=== PATIENT | male | born 1965 | race Caucasian/White ===

== ENCOUNTER 2021-08-02 14:07 | Inpatient (IN) | payer BC ==
[~2021-08-02] VITALS: Ht 175.3 cm; Wt 123.6 kg
[~2021-08-02 14:07] MED LIST: ALBU90OI61 INH; ALLEGRA ALLERGY60 MG PO; Advil200 M1 PO; CARV25; CEPH500 PO; Calcium Carbon500 MG PO; FLUO10; FUROSEMIDE40 MG PO; HYDACE5 PO; INSLIS75I; KLOR-CON 1010 ME5 PO; LORA1; LOSA25 PO; Levaquin500 MG PO; NEBI5 PO; PIOGLITAZONE HC15 MG PO; PROZAC20 M7 PO; Pepto-Bismol262 MG PO; ROLAIDS; SERT100 PO; SERT50 PO; URSODIOL PO; Ventolin/Prove6.7 GM INH
[2021-08-02 14:35] LABS: Hematocrit 31.4 % (37.0-53.0); Hemoglobin 11.3 g/dL (13.5-17.5); Mean Corpuscular Volume 103 fL (80-100); Mean Platelet Volume 10.6 fL (9.1-12.4); Platelet Count 77 K/mm3 (150-400); RDW Coefficient Variation 16.1 % (11.7-14.2); Red Blood Cell Count 3.05 M/mm3 (4.30-5.90); White Blood Cell Count 5.45 K/mm3 (4.00-11.30)
[2021-08-02 14:54] LABS: Albumin, Blood 1.8 g/dL (3.4-5.0); Albumin/Globulin Ratio 0.4 (0.8-1.8); Bilirubin, Total 5.2 mg/dL (0.1-1.0); Bun/Creatinine Ratio 20.3 (12.0-20.0); Calcium, Blood 8.9 mg/dL (8.5-10.1); Creatinine, Blood 1.53 mg/dL (0.60-1.20); Globulin, Blood 5.1 g/dL (2.2-4.0); Potassium, Blood 4.5 mmol/L (3.5-5.5); Total Protein, Blood 6.9 g/dL (6.4-8.2)
[2021-08-02 15:10] LABS: BAND PERCENT MAN 17 % (0-8); BASOPHILS PERCENT MAN 2 % (0-2); EOSINOPHILS PERCENT MAN 2 % (0-6); LYMPHOCYTES ABSOLUTE MAN 0.59 K/mm3 (0.84-5.20); LYMPHOCYTES PERCENT MAN 11 % (21-46); METAMYELOCYTE ABSOLUTE MAN 0.05 K/mm3 (0.00-0.00); METAMYELOCYTE PERCENT MAN 1 % (0-0); MONOCYTES ABSOLUTE MAN 0.16 K/mm3 (0.16-1.47); MONOCYTES PERCENT MAN 3 % (4-13); NEUTROPHILS ABSOLUTE MAN 4.41 K/mm3 (1.96-9.15); SEG NEUTROPHILS PERCENT MAN 64 % (41-73); TOTAL CELLS COUNTED 100
[2021-08-02 16:20] LABS: International Normalized Ratio 1.66; Prothrombin Time Results 16.9 Sec (9.7-11.5)
[2021-08-02 19:54] LABS: Source, Urine Clean Catch
[2021-08-02 19:58] LABS: Appearance, Urine Hazy (Clear); Blood, Urine 2+ (Neg); Color, Urine Amber (P-Yellow); Glucose Qualitative, Urine Neg (Neg); Ketones, Urine Neg (Neg); Leukocyte Esterase, Urine 1+ (Neg); Nitrite, Urine Neg (Neg); Protein, Urine 1+ (Neg); Specific Gravity, Urine 1.015 (1.003-1.022); Urobilinogen, Urine 3+ (Normal)
[2021-08-02 20:06] LABS: Bilirubin, Urine 1+ (Neg)
[2021-08-02 20:11] LABS: Bacteria Few /hpf; Squamous Epithelial Cells Few /hpf (Few)
[2021-08-02 20:12] LABS: Amorphous Heavy (0-Heavy); Calcium Oxalate Crystals Few /hpf
[2021-08-02] MEDS ORDERED: NEBI5 PO (20:29)
[2021-08-03 00:12] LABS: Influenza A, PCR NEGATIVE (NEGATIVE); Influenza B, PCR NEGATIVE (NEGATIVE); Resp Syncytial Virus, PCR NEGATIVE (NEGATIVE); SARS-Cov-2 (COVID-19) PCR, MMC NEGATIVE (NEGATIVE)
[2021-08-03 04:47] LABS: Hematocrit 30.8 % (37.0-53.0); Hemoglobin 10.6 g/dL (13.5-17.5); Mean Corpuscular HGB 36.8 pg (26.0-34.0); Mean Corpuscular HGB Conc 34.4 g/dL (31.5-36.5); Mean Corpuscular Volume 107 fL (80-100); Mean Platelet Volume 10.2 fL (9.1-12.4); Platelet Count 55 K/mm3 (150-400); RDW Coefficient Variation 16.6 % (11.7-14.2); RDW Standard Deviation 64.8 fL (35.1-46.3); Red Blood Cell Count 2.88 M/mm3 (4.30-5.90); White Blood Cell Count 7.87 K/mm3 (4.00-11.30)
[2021-08-03 04:59] LABS: International Normalized Ratio 1.73; Prothrombin Time Results 17.5 Sec (9.7-11.5)
--- NOTE | 2021-08-03 05:05 | NUR ---
SHIFT SUMMARY PT RECEIVED FROM ER LAST NIGHT.PT WAS ADMITTED FOR DECOMPENSATED HEPATHIC CIRRHOSIS. PT WAS COMPLAINING OF NVD. PT IS AAOX4, VERY PLEASANT AND COOPERATIVE WITH CARE.PT ON 2L NC. PT CURRENTLY NPO WAITING FOR PARACENTESIS TO BE DONE TODAY. PT SLEPT THROUGN THE NIGHT, NO COMPLAINTS OF PAIN AND SOB.VSS REVIEWED. PT IS RESTING COMFORTABLY AT THIS TIME. BED IN LOWER POSITION AND CALL LIGHT IN REACH. WILL CONTINUE TO MONITOR.
[2021-08-03 05:10] LABS: BAND PERCENT MAN 18 % (0-8); BASOPHILS PERCENT MAN 0 % (0-2); EOSINOPHILS PERCENT MAN 0 % (0-6); LYMPHOCYTES ABSOLUTE MAN 0.23 K/mm3 (0.84-5.20); LYMPHOCYTES PERCENT MAN 3 % (21-46); MONOCYTES ABSOLUTE MAN 0.23 K/mm3 (0.16-1.47); MONOCYTES PERCENT MAN 3 % (4-13); NEUTROPHILS ABSOLUTE MAN 7.39 K/mm3 (1.96-9.15); SEG NEUTROPHILS PERCENT MAN 76 % (41-73); TOTAL CELLS COUNTED 100
[2021-08-03 05:35] LABS: Albumin, Blood 1.6 g/dL (3.4-5.0); Albumin/Globulin Ratio 0.3 (0.8-1.8); Bilirubin, Total 5.6 mg/dL (0.1-1.0); Bun/Creatinine Ratio 17.9 (12.0-20.0); Calcium, Blood 8.5 mg/dL (8.5-10.1); Creatinine, Blood 2.18 mg/dL (0.60-1.20); Globulin, Blood 4.8 g/dL (2.2-4.0); Phosphorus, Blood 4.9 mg/dL (2.5-4.9); Total Protein, Blood 6.4 g/dL (6.4-8.2)
[2021-08-03 11:08] LABS: Appearance, Body Fluid Cloudy (Clear); Color, Body Fluid Amber (None-Yellow)
[2021-08-03 11:09] LABS: Body Fluid WBC Count 15380 /mm3 (0-999)
[2021-08-03 11:10] LABS: RBC Count, Body Fluid 10000 /mm3 (0-0)
[2021-08-03 11:15] LABS: Lactate Dehydrogenase, Body Fl 966 U/L; Protein, Body Fluid 1.9 g/dL
[2021-08-03 11:23] LABS: Total Cell Count, Body Fluid 100
--- NOTE | 2021-08-03 18:31 | NUR ---
SHIFT SUMMARY PT IS AAOX4. ABLE TO AMBULATE INDEPENDENTLY TO BSC WITH NO ASSISTANCE. BREATHING IS BETTER ON ROOM AIR NOW. HAD A PARACENTESIS IN THE AM AND HAD 6.3 LITERS REMOVED OFF ABD. BP LOW AFTERWARDS OF 80/50. MD NOTIFIED. ORDERS FOR ALBUMIN AND GIVEN X2 DOSES. IV ANTIBIODICS GIVEN AND STARTED ON PRO-AMITINE PO. NAD NOTED. NO CO PAIN, N/V OR SOB THIS PM. WILL CONTINUE TO MONITOR IN CARE
[2021-08-03 23:42] LABS: Source, Urine Catheter
[2021-08-03 23:46] LABS: Blood, Urine 4+ (Neg); Glucose Qualitative, Urine Neg (Neg); Ketones, Urine 1+ (Neg); Leukocyte Esterase, Urine 1+ (Neg); Nitrite, Urine Pos (Neg); Protein, Urine 2+ (Neg); Specific Gravity, Urine 1.025 (1.003-1.022); Urobilinogen, Urine 2+ (Normal)
[2021-08-03 23:50] LABS: Appearance, Urine Hazy (Clear); Bilirubin, Urine 1+ (Neg); Color, Urine Amber (P-Yellow)
[2021-08-04 00:27] LABS: Amorphous Light (0-Heavy); Bacteria Mod /hpf; Red Blood Cells, Urine 0-2 /hpf (0-2); Renal Epithelial Few /hpf (0-Rare); Squamous Epithelial Cells Rare /hpf (Few)
[2021-08-04 02:15] LABS: Hematocrit 26.2 % (37.0-53.0); Hemoglobin 9.2 g/dL (13.5-17.5); Mean Corpuscular HGB 37.2 pg (26.0-34.0); Mean Corpuscular HGB Conc 35.1 g/dL (31.5-36.5); Mean Corpuscular Volume 106 fL (80-100); Mean Platelet Volume 10.1 fL (9.1-12.4); RDW Coefficient Variation 16.1 % (11.7-14.2); Red Blood Cell Count 2.47 M/mm3 (4.30-5.90); White Blood Cell Count 7.84 K/mm3 (4.00-11.30)
[2021-08-04 02:19] LABS: Platelet Count 47 K/mm3 (150-400)
[2021-08-04 03:09] LABS: Albumin/Globulin Ratio 0.5 (0.8-1.8); Bilirubin, Total 3.6 mg/dL (0.1-1.0); Calcium, Blood 8.5 mg/dL (8.5-10.1); Creatinine, Blood 2.83 mg/dL (0.60-1.20); Globulin, Blood 3.8 g/dL (2.2-4.0); Magnesium, Blood 2.3 mg/dL (1.6-2.4); Potassium, Blood 4.3 mmol/L (3.5-5.5); Total Protein, Blood 5.8 g/dL (6.4-8.2)
--- NOTE | 2021-08-04 04:49 | NUR ---
SHIFT SUMMARY PT IS AAOX4, PLEASANT AND COOPERATIVE. PT'S BP BEEN ON THE LOW SIDE ALL SHIFT. MD WAS NOTIFIED MULTIPLE TIMES. PT RECEIVED IN TOTAL 500ML NS AND 25G OF ALBUMIN. LACTIC ACID WAS ALSO ELEVATED 2.7. IT CAME DOWN TO 1.6.BP WAS 82/47 AND NOW ITS 99/52. PT IS BEEN ASYMPTOMATIC,NO CHANGE IN HIS MENTAL STATUS.PT REPORTS TWO LOOSES BM. PT IS RESTING AT THIS TIME, NO SIGN OF DISTRESS OBSERVED. BED IN LOWER POSITION AND CALL LIFT IN REACH. WILL CONTINUE TO MONITOR.
[2021-08-04 11:53] LABS: International Normalized Ratio 1.95; Prothrombin Time Results 19.6 Sec (9.7-11.5)
--- NOTE | 2021-08-04 18:42 | NUR ---
SHIFT SUMMARY PT IS AAOX4. INDEPENDENT AND AMBULATES IN ROOM. HAD NO C/O PAIN, SOB OR DISCOMFORT TODAY. DID C/O N/V AND WAS MEDICATED WITH ZOFRAN. NAD NOTED. BP LOW IN AM AND INTERVENTIONS HELPED BOOST IT AFTER DR ZALDIVAR SAW PT AND CONSULTED GI AND RENAL WELL. LAB, URINE SAMPLE SENT. AT BEDSIDE. ON TELE MONITOR RUNNING NSR AT 83, CONFIRMED PER NEURORADIOLOGIST ON TODAY, ABBE. WILL CONTINUE TO MONITOR IN CARE
--- NOTE | 2021-08-05 03:50 | NUR ---
SHIFT SUMMARY A&OX4, TELE=NSR, LUNGS COARSE WITH WHEEZE, IBARRA, 1L O2NC, DISTENDED ABDOMEN, ASCITIES +1 PITTING EDEMA TO ABDOMEN. +4 PITTING EDEMA TO BLE. JAUNDICED. NAUSEA NO VOMITTIG. STOOL SAMPLE SENT. BPS SOFT: ON ALBUMIN, SANDOSTATIN, AND MIDODRINE. DR. BASURTO AT BEDSIDE DISCCUSED CASE WITH PATIENT AND THIS RN, NEW ORDERS OBTAINED.
[2021-08-05 04:58] LABS: BASOPHILS ABSOLUTE AUTO 0.02 K/mm3 (0.00-0.23); BASOPHILS PERCENT AUTO 0 % (0-2); EOSINOPHILS ABSOLUTE AUTO 0.13 K/mm3 (0.00-0.68); EOSINOPHILS PERCENT AUTO 2 % (0-6); Hematocrit 24.4 % (37.0-53.0); Hemoglobin 8.6 g/dL (13.5-17.5); IMMATURE GRAN ABSOLUTE AUTO 0.09 K/mm3 (0.00-0.10); IMMATURE GRAN PERCENT AUTO 1 % (0-1); LYMPHOCYTES ABSOLUTE AUTO 0.98 K/mm3 (0.84-5.20); LYMPHOCYTES PERCENT AUTO 13 % (21-46); MONOCYTES ABSOLUTE AUTO 0.87 K/mm3 (0.16-1.47); MONOCYTES PERCENT AUTO 11 % (4-13); Mean Corpuscular HGB 36.6 pg (26.0-34.0); Mean Corpuscular HGB Conc 35.2 g/dL (31.5-36.5); Mean Corpuscular Volume 104 fL (80-100); Mean Platelet Volume 10.7 fL (9.1-12.4); NEUTROPHILS ABSOLUTE AUTO 5.62 K/mm3 (1.96-9.15); NEUTROPHILS PERCENT AUTO 73 % (41-73); RDW Coefficient Variation 16.1 % (11.7-14.2); RDW Standard Deviation 61.2 fL (35.1-46.3); Red Blood Cell Count 2.35 M/mm3 (4.30-5.90); White Blood Cell Count 7.71 K/mm3 (4.00-11.30)
[2021-08-05 05:03] LABS: Platelet Count 48 K/mm3 (150-400)
[2021-08-05 05:13] LABS: International Normalized Ratio 2.04; Prothrombin Time Results 20.4 Sec (9.7-11.5)
[2021-08-05 05:25] LABS: Adenovirus F 40/41 Not Detected (NOT DETECT); Astrovirus Not Detected (NOT DETECT); Campylobacter Sp Not Detected (NOT DETECT); Cryptosporidium Not Detected (NOT DETECT); Cyclospora Cayetanensis Not Detected (NOT DETECT); E. Coli O157 Not Detected (NOT DETECT); Entamoeba Histolytica Not Detected (NOT DETECT); Enteroaggregative E. coli-EAEC Not Detected (NOT DETECT); Enteropathogenic E. coli-EPEC Not Detected (NOT DETECT); Enterotoxigenic E. coli-ETEC Not Detected (NOT DETECT); Giardia Lamblia Not Detected (NOT DETECT); Norovirus GI/GII Not Detected (NOT DETECT); Plesiomonas Shigelloides Not Detected (NOT DETECT); Rotavirus A Not Detected (NOT DETECT); Salmonella Sp Not Detected (NOT DETECT); Sapovirus Not Detected (NOT DETECT); Shiga Toxin-prod E. coli-STEC Not Detected (NOT DETECT); Shigella/Enteroin E. coli-EIEC Not Detected (NOT DETECT); Vibrio Cholerae Not Detected (NOT DETECT); Vibrio Sp Not Detected (NOT DETECT); Yersinia Enterocolitica Not Detected (NOT DETECT)
[2021-08-05 06:03] LABS: Albumin, Blood 2.2 g/dL (3.4-5.0); Albumin/Globulin Ratio 0.7 (0.8-1.8); Bilirubin, Indirect 1.7 mg/dL (0.1-0.7); Bilirubin, Total 3.7 mg/dL (0.1-1.0); Bun/Creatinine Ratio 16.5 (12.0-20.0); Calcium, Blood 7.9 mg/dL (8.5-10.1); Creatinine, Blood 3.87 mg/dL (0.60-1.20); Globulin, Blood 3.3 g/dL (2.2-4.0); Magnesium, Blood 2.3 mg/dL (1.6-2.4); Phosphorus, Blood 5.8 mg/dL (2.5-4.9); Potassium, Blood 4.4 mmol/L (3.5-5.5); Total Protein, Blood 5.5 g/dL (6.4-8.2)
[2021-08-05 06:05] LABS: Prostate Specific Antigen 0.123 ng/mL (0.000-4.000)
[2021-08-05 13:23] LABS: Source, Urine Foley catheter
[2021-08-05 13:41] LABS: Appearance, Urine Hazy (Clear); Blood, Urine 5+ (Neg); Color, Urine Amber (P-Yellow); Glucose Qualitative, Urine Neg (Neg); Ketones, Urine 1+ (Neg); Leukocyte Esterase, Urine 2+ (Neg); Nitrite, Urine Pos (Neg); Protein, Urine 3+ (Neg); Urobilinogen, Urine 1+ (Normal)
[2021-08-05 14:05] LABS: Bilirubin, Urine 1+ (Neg)
[2021-08-05 14:08] LABS: Amorphous Light (0-Heavy); Bacteria Many /hpf; Mucus Light (0-Heavy); Squamous Epithelial Cells Few /hpf (Few); Yeast/Fungi Urine Mod /hpf
--- NOTE | 2021-08-05 19:33 | NUR ---
SHIFT SUMMARY PT AXO, PLEASANT AND COOPERATIVE WITH CARE. AT START OF SHIFT PT WAS UP INDEPENDENTLY WITH SPOUSE IN THE ROOM. PT STATED THAT HE WAS COMFORTABLE AMBULATING AND FELT SAFE. ASYMPTOMATIC WITH LOW BP. THOUGH AT END OF SHIFT TONIGHT, PT REPORTS BEING SO WEAK THAT HE COULDN'T LIFT A CUP FOR A DRINK. SEE VITAL SIGNS FOR BP. POOR URINE OUTPUT. 50 ML OUT FOR WHOLE SHIFT. DR BASURTO (AT 1548) AND DR WILBURN (AT 1534) NOTIFIED. PT ALSO REPORTS PAIN FROM "TOP OF HEAD TO TIPS OF FINGERS." DR WILBURN AND SB NOTIFIED WELL. PT EDUCATED ABOUT NEW ORDERS, TREATMENTS AND FLUID RESTRICTION. ARNDOLPH PLACED AT 1330, VERY LITTLE ABBE URINE OUTPUT. PARACENTESIS ORDER PLACED BY DR WILBURN HOWEVER AMNA KITCHEN FROM RADIOLOGY AND NOTIFIED THIS NURSE AT ABOUT 1600 THAT PATIENT WOULD NOT BE ABLE TO HAVE PARACENTESIS UNTIL INR WAS UNDER 2. HUMIDIFIER ADDED PER DR ZHOU VERBAL ORDER. PT AND SPOUSE EXPRESSED CONCERN ABOUT PATIENT CONDITION. THERAPEUTIC COMMUNICATION AND ACTIVE LISTENING UTILIZED. BED IN LOW POSITION, CALL LIGHT WITHIN REACH. DURING BEDSIDE REPORT, THIS NURSE, SIZE WORKER AND ONCOMING NIGHTSHIFT NURSE OBSERVED THAT PATIENT MENTATION WAS SLIGHTLY DECLINED. CHARGE NURSE NOTIFIED. REPORT GIVEN TO EMERGENCY MEDICINE NURSE PRACTITIONER NURSE WHO ASSUMED CARE UPON REPORT.
--- NOTE | 2021-08-06 02:06 | NUR ---
08/06/[address] Guerra notified of vital signs of BP 87/43, map 57. Order to stop bumex drip and Bumex bolus received.
--- NOTE | 2021-08-06 04:32 | NUR ---
SHIFT SUMMARY AOX4. SLOW TO RESPOND TO SOME QUESTIONS, STATES HE FEELS "FOGGY" & HAVING MORE DIFFICULTY THINKING THEN USUAL. FOLLOWS DIRECTIONS. TELE NSR @79. SPO2 >90% ON 1L O2. SBP TRENDING LOW 85-96. +3 EDEMA TO BLE. COARSE INSP/EXP WHEEZES T/O. HAS OCC CONGESTED PRODUCTIVE COUGH c CLEAR SPUTUM. REPORTS INCREASED WEAKNESS & ACHY PAIN T/O WHOLE BODY, REPORTS PAIN IS 8/10. ABD EXTREMELY DISTENDED, VERY TENDER TO MINIMAL PALPATION, GAURDED, TYMPANTIC BT, NO BM THIS SHIFT. ONLY 10ML URINE OUTPUT THIS ENTIRE SHIFT IN RANDOLPH, IV BUMEX DC'D BY DR BASURTO. CALL LIGHT IN PLACE. WCTM.
[2021-08-06 05:17] LABS: Hematocrit 24.9 % (37.0-53.0); Hemoglobin 8.8 g/dL (13.5-17.5)
[2021-08-06 05:52] LABS: Albumin, Blood 2.4 g/dL (3.4-5.0); Anion Gap 9 mmol/L (6-16); Blood Urea Nitrogen 80 mg/dL (8-24); Bun/Creatinine Ratio 16.2 (12.0-20.0); CO2, Blood 23 mmol/L (21-32); Calcium, Blood 8.1 mg/dL (8.5-10.1); Chloride, Blood 98 mmol/L (98-108); Creatinine, Blood 4.95 mg/dL (0.60-1.20); Glomerular Filtration Rate 12 (60-); Glucose, Blood 115 mg/dL (70-99); Magnesium, Blood 2.2 mg/dL (1.6-2.4); Phosphorus, Blood 5.6 mg/dL (2.5-4.9); Potassium, Blood 4.4 mmol/L (3.5-5.5); Sodium, Blood 130 mmol/L (136-145)
[2021-08-06 08:37] LABS: International Normalized Ratio 1.85; Prothrombin Time Results 18.7 Sec (9.7-11.5)
[2021-08-06 08:51] LABS: BASOPHILS ABSOLUTE AUTO 0.04 K/mm3 (0.00-0.23); BASOPHILS PERCENT AUTO 1 % (0-2); EOSINOPHILS ABSOLUTE AUTO 0.17 K/mm3 (0.00-0.68); EOSINOPHILS PERCENT AUTO 3 % (0-6); Hematocrit 24.8 % (37.0-53.0); Hemoglobin 8.8 g/dL (13.5-17.5); IMMATURE GRAN ABSOLUTE AUTO 0.11 K/mm3 (0.00-0.10); IMMATURE GRAN PERCENT AUTO 2 % (0-1); LYMPHOCYTES ABSOLUTE AUTO 0.95 K/mm3 (0.84-5.20); LYMPHOCYTES PERCENT AUTO 14 % (21-46); MONOCYTES ABSOLUTE AUTO 1.07 K/mm3 (0.16-1.47); MONOCYTES PERCENT AUTO 16 % (4-13); Mean Corpuscular HGB 37.3 pg (26.0-34.0); Mean Corpuscular HGB Conc 35.5 g/dL (31.5-36.5); Mean Corpuscular Volume 105 fL (80-100); Mean Platelet Volume 10.9 fL (9.1-12.4); NEUTROPHILS ABSOLUTE AUTO 4.24 K/mm3 (1.96-9.15); NEUTROPHILS PERCENT AUTO 64 % (41-73); Platelet Count 51 K/mm3 (150-400); RDW Coefficient Variation 16.1 % (11.7-14.2); RDW Standard Deviation 61.8 fL (35.1-46.3); Red Blood Cell Count 2.36 M/mm3 (4.30-5.90); White Blood Cell Count 6.58 K/mm3 (4.00-11.30)
--- NOTE | 2021-08-06 10:33 | NUR ---
PT TO TRANSFER TO ICU 7, PT TAKEN TO PARACENTESIS, UP WITH 1-2 P ASSIST WITH FWW, SLOW, REPORT GIVEN TO ANDREY CLOUD, CALL PLACED TO PT'S Fredo PHILLIPS, SHE IS ON HER WAY IN NOW, PT'S BELONGINGS TAKEN TO ICU
[2021-08-06 11:30] LABS: Albumin, Body Fluid 0.7 g/dL
--- NOTE | 2021-08-06 11:34 | NUR ---
PT TRANSFERED FROM [facility] TO ICU 1 AFTER PARACENTESIS. PT IS A/O X4. SOME DISCOMFORT WITH REPOSITIONING. LARGE FIRM ABD. ON 2L NC. PT IS HYPOTENSIVE. DR. BARAJAS AT BEDSIDE EVALUATING PT FOR TRIALYSIS CATH. PT COULD POTENTIALLY NEED LEVOPHED AND DIALYSIS. PT'S CATHETER NOTED TO BE LEAKING ON ARRIVAL. ONE UNMEASURED VOID AND HAS SOME URINE IN BAG. S.O. ALAN AT BEDSIDE. PT WAS SWABBED TO R/O OLIVER SINCE HE HAS HAD A FAMILY MEMBER TEST POSITIVE RECENTLY. NO SIGN OF DISTRESS AT THE MOMENT.
[2021-08-06 11:41] LABS: Protein, Body Fluid 2.4 g/dL
[2021-08-06 11:46] LABS: Lactate Dehydrogenase, Body Fl 159 U/L
[2021-08-06 11:55] LABS: Automated BF RBC Count 0.008 M/mm3 (0-0); Automated BF WBC Count 1.374 K/mm3 (0-999); Body Fluid WBC Count 1374 /mm3 (0-999); RBC Count, Body Fluid 8000 /mm3 (0-0)
[2021-08-06 12:09] LABS: Influenza A, PCR NEGATIVE (NEGATIVE); Influenza B, PCR NEGATIVE (NEGATIVE); Resp Syncytial Virus, PCR NEGATIVE (NEGATIVE); SARS-Cov-2 (COVID-19) PCR, MMC NEGATIVE (NEGATIVE)
[2021-08-06 12:20] LABS: Total Cell Count, Body Fluid 100
[2021-08-06 12:21] LABS: Appearance, Body Fluid Hazy (Clear); Color, Body Fluid Amber (None-Yellow)
[2021-08-06 13:54] LABS: Albumin, Blood 2.7 g/dL (3.4-5.0); Albumin/Globulin Ratio 0.8 (0.8-1.8); Bilirubin, Direct 2.6 mg/dL (0.0-0.3); Bilirubin, Indirect 2.3 mg/dL (0.1-0.7); Bilirubin, Total 4.9 mg/dL (0.1-1.0); Globulin, Blood 3.2 g/dL (2.2-4.0); Total Protein, Blood 5.9 g/dL (6.4-8.2)
--- NOTE | 2021-08-06 16:10 | NUR ---
PT GETTING DIALYSIS. BP DIPPED AGAIN AND LEVOPHED WAS STARTED. SEE FLOWSHEET. PT DEVELOPED MID STERNUM CP THAT HE DESCRIBED SPASMODIC AND DEEP. NOT RADIATING. LET DR. BARAJAS KNOW. EKG OBTAINED AND NITRO GIVEN. ONE NITRO RELIEVED PAIN. ECHO BEING DONE NOW AND TROPONIN DRAWN. S.O. AT BEDSIDE STATES PT IS SOUNDING AND LOOKING BETTER THAN PRIOR TO ICU.
[2021-08-06 16:38] LABS: CPK Creatine Kinase 22 U/L (39-308); Creatine Kinase MB 1.1 ng/mL (0.0-3.6); Troponin I <0.015 ng/mL (0.000-0.040)
--- NOTE | 2021-08-06 18:21 | NUR ---
SUMMARY PT TRANSFERED TO ICU THIS AM. PT WAS HYPOTENSIVE, LOW UO, AND CREATININE CONTINUED TO CLIMB. TRIALYSIS CATH WAS PLACED TO [facility] BY DR. BARAJAS. PT HAD DIALYSIS THIS AFTERNOON. DURING DIALYSIS PT BECOME MORE HYPOTENSIVE AND REQUIRED LEVOPHED. SEE FLOWSHEET. SINCE LEVOPHED WAS STARTED PT FEELS HIS MENTATION HAS IMPROVED, HE FEELS LESS "FOGGY", AND HIS S.O. SEES A CHANGE IN OVERALL APPEARANCE. PT HAD SOME CP DURING DIALYSIS THAT WAS RELIEVED WITH ONE NITRO. EKG LOOKED OKAY PER DR. BARAJAS AND TROPONIN WAS NORMAL. ECHO WAS DONE. NO SIGN OF DISTRESS AT THE MOMENT. PT IS ABLE TO MOVE SELF IN BED.
[2021-08-06 20:32] LABS: Bilirubin, Urine Neg (Neg); Blood, Urine 5+ (Neg); Glucose Qualitative, Urine Neg (Neg); Ketones, Urine Neg (Neg); Leukocyte Esterase, Urine 2+ (Neg); Nitrite, Urine Neg (Neg); Protein, Urine 2+ (Neg); Specific Gravity, Urine 1.015 (1.003-1.022); Urobilinogen, Urine NORM (Normal)
[2021-08-06 20:40] LABS: Appearance, Urine Hazy (Clear); Color, Urine Yellow (P-Yellow)
[2021-08-06 20:44] LABS: Amorphous Light (0-Heavy); Bacteria Mod /hpf; Red Blood Cells, Urine 0-2 /hpf (0-2); Squamous Epithelial Cells Not Seen /hpf (Few); Yeast/Fungi Urine Mod /hpf
--- NOTE | 2021-08-06 20:58 | NUR ---
PATIENT SLEEPING, AWAKENS TO SLIGHT STIMULI, FALLING BACK TO SLEEP WHEN UNDISTURBED. ANSWERING QUESTIONS APPROPRIATELY. GENERALIZED WEAKNESS. GENERALIZED EDEMA. RANDOLPH DRAINING HAZY ABBE URINE SPECIMEN SENT PER ORDER. LEVOPHED FOR HYPOTENSION INFUSING TO PIGGY TAIL ON TRIALYSIS LINE. BANDAID TO RIGHT LOWER ABD CD&I FROM PARACENTESIS TODAY.
--- NOTE | 2021-08-07 02:14 | NUR ---
PATIENT AWAKE AND RESTLESS, VERBALIZED THAT HE FEELS IF HIS RANDOLPH CATH IS GOING TO LEAK, SMALL AMT OF URINE ON UNDERWEAR AND TOP BLANKET. PATIENT AGREEING TO REMOVE UNDERWEAR SO THAT THE RANDOLPH IS NOT KINKED UNDER THE LEG OF THE UNDERWEAR AND AGREEING TO LINEN CHANGE. PATIENT HAS PAIN WITH REPOSITIONING " EVERYWHERE " PATIENT VERBALIZED THAT IT IS EASIER TO LIFT HIS LEGS THIS MORNING. PATIENT C/O SLIGHT DIZZINESS WITH LAYING FLAT FOR BOOSTING IN BED, RESOLVED ONCE SETTLED.
[2021-08-07 03:34] LABS: BASOPHILS ABSOLUTE AUTO 0.03 K/mm3 (0.00-0.23); BASOPHILS PERCENT AUTO 0 % (0-2); EOSINOPHILS ABSOLUTE AUTO 0.15 K/mm3 (0.00-0.68); EOSINOPHILS PERCENT AUTO 2 % (0-6); Hematocrit 25.8 % (37.0-53.0); Hemoglobin 9.4 g/dL (13.5-17.5); IMMATURE GRAN ABSOLUTE AUTO 0.15 K/mm3 (0.00-0.10); IMMATURE GRAN PERCENT AUTO 2 % (0-1); LYMPHOCYTES PERCENT AUTO 8 % (21-46); MONOCYTES ABSOLUTE AUTO 0.86 K/mm3 (0.16-1.47); MONOCYTES PERCENT AUTO 12 % (4-13); Mean Corpuscular HGB 37.6 pg (26.0-34.0); Mean Corpuscular HGB Conc 36.4 g/dL (31.5-36.5); Mean Corpuscular Volume 103 fL (80-100); Mean Platelet Volume 10.5 fL (9.1-12.4); NEUTROPHILS ABSOLUTE AUTO 5.36 K/mm3 (1.96-9.15); NEUTROPHILS PERCENT AUTO 75 % (41-73); RDW Coefficient Variation 16.1 % (11.7-14.2); RDW Standard Deviation 60.4 fL (35.1-46.3); White Blood Cell Count 7.15 K/mm3 (4.00-11.30)
[2021-08-07 03:40] LABS: Platelet Count 50 K/mm3 (150-400)
[2021-08-07 03:55] LABS: Albumin, Blood 2.6 g/dL (3.4-5.0); Anion Gap 8 mmol/L (6-16); Blood Urea Nitrogen 63 mg/dL (8-24); CO2, Blood 26 mmol/L (21-32); Calcium, Blood 8.2 mg/dL (8.5-10.1); Chloride, Blood 98 mmol/L (98-108); Glomerular Filtration Rate 15 (60-); Glucose, Blood 157 mg/dL (70-99); Magnesium, Blood 2.1 mg/dL (1.6-2.4); Phosphorus, Blood 4.9 mg/dL (2.5-4.9); Potassium, Blood 3.8 mmol/L (3.5-5.5); Sodium, Blood 132 mmol/L (136-145)
--- NOTE | 2021-08-07 06:20 | NUR ---
SUMMARY PATIENT SLEEPING OFF AND ON T/O NIGHT, VERBALIZED HE FELT LIKE HE SLEPT WELL. CONTINUES TO HAVE PAIN WITH REPOSITIONING IN BED, VERBALIZED THAT HE FEELS LIKE IT IS EASIER TO MOVE HIS LEGS THIS MORNING. ABD REMAINS ROUND BUT SOFT. GENERALIZED DEPENDENT EDEMA 3+. LEVOPHED FOR HYPOTENSION TITRATED T/O NIGHT, DOWN TO 4 MCG. RANDOLPH DRAINING SMALL AMT OF CLOUDY YELLOW URINE.
--- NOTE | 2021-08-07 08:00 | NUR ---
ASSUMED CARE REPORT FROM SARAH BETH CLOUD AT 0700. PT RESTING IN BED. WAKES c VERBAL STIMULI. A&OX 4. FOLLOWS COMMANDS. DENIES COMPLAINTS. REPORTS GOOD SLEEP LAST NOC. LUNGS DIM IN BASES. SHALLOW RESP. 2L VIA NC, TITRATED TO 1L AND PLACED ON HUMIDIFIER PER PT REQUEST. NSR, RATE 60'S. LEVO GTT FOR MAP>65, 4 MCG/MIN AT THIS TIME. ABD FIRM, DISTENDED, TENDER. BTX 4. 3+ EDEMA IN BLE, PT STATES THIS BASELINE. ALSO STATES LEGS TENDER TO TOUCH. TRIALYSIS CATH TO RIJ, DRESSING C/D/I. PIV X 2. WILL CONTINUE TO MONITOR.
[2021-08-07 08:09] LABS: HBSAG SCREEN Negative (Negative); HEP A AB, IGM Negative (Negative); HEP B CORE AB, IGM Negative (Negative); HEP C VIRUS AB 0.2 (0.0-0.9)
--- NOTE | 2021-08-07 17:18 | NUR ---
SHIFT SUMMARY NO ACUTE CHANGES THIS SHIFT. REMAINS ON LEVO AT 4 MCG/MIN FOR MAP. CONTINUES ON MIDODRINE. NO DIALYSIS THIS SHIFT, PLAN FOR DIALYSIS TOMORROW. ONE PERSON ASSIST TO BATHROOM c WALKER. SO AT BEDSIDE THIS SHIFT. WILL CONTINUE TO MONITOR UNTIL REPORT TO ONCOMING NURSE.
--- NOTE | 2021-08-07 18:26 | NUR ---
Spiritual Care visit. Pt. was sitting up in his bed. SO was present. Pt. welcomed me. Pt. showed some distress over the need to get his kidney and lover fucntioning, but at the same time was grateful for the progress in his well being in the past 24 hrs. Through empathetic listening, developed rapport. SO is also dealing with significant health issues. Pt. displayed evidence of taj and that many were currently praying for him. Prayed for both Pt. and SO. Pt. verbalized gratitude for the care received and the visit. I will plan to return and monitor his progress.
--- NOTE | 2021-08-07 22:00 | NUR ---
ASSUMED CARE AT 1900 PT LAYING IN BED WATCHING TV WITH SIGNIFICANT OTHER AT BED SIDE IN THE PROCESS OF LEAVING. PT IS ALERT/ORIENTED X4 AND IS ABLE TO MAKE HIS NEEDS KNOWN; LETHARGIC AT TIMES AND "TIRED". AFEBRILE. SPO2 >95% ON 2L NC. HR 60'S. SBP 100; LEVOPHED INFUSING AT 4MCG/MIN. ABD DISTENDID AND TENDER TO PALPATE. RANDOLPH IN PLACE AND OCCATIONALLY DRAINING TO BAG, ALSO LEAKS AROUND RANDOLPH. SEE SHIFT ASSESSMENT FOR FULL ASSESSMENT.
[2021-08-08 03:20] LABS: Hematocrit 25.4 % (37.0-53.0); Hemoglobin 8.9 g/dL (13.5-17.5)
[2021-08-08 03:42] LABS: Albumin, Blood 2.8 g/dL (3.4-5.0); Anion Gap 9 mmol/L (6-16); Blood Urea Nitrogen 69 mg/dL (8-24); Bun/Creatinine Ratio 14.8 (12.0-20.0); CO2, Blood 26 mmol/L (21-32); Calcium, Blood 8.2 mg/dL (8.5-10.1); Chloride, Blood 98 mmol/L (98-108); Creatinine, Blood 4.65 mg/dL (0.60-1.20); Glomerular Filtration Rate 13 (60-); Glucose, Blood 130 mg/dL (70-99); Magnesium, Blood 2.1 mg/dL (1.6-2.4); Phosphorus, Blood 4.9 mg/dL (2.5-4.9); Potassium, Blood 4.1 mmol/L (3.5-5.5); Sodium, Blood 133 mmol/L (136-145)
--- NOTE | 2021-08-08 06:23 | NUR ---
END OF SHIFT SUMMARY NO ACUTE EVENTS OVERNIGHT, PT SLEPT FOR 2-3HRS AT A TIME. PT IS ALERT/ORIENTED X4 AND ABLE TO MAKE HIS NEEDS KNOWN. AFEBRILE. SPO2 >94% ON 1L NC. HR 60'S. SBP 100-110; MAP 65-70; LEVOPHED CONT TO BE AT 4MCG/MIN. RANDOLPH HAD 450ML URINE OUTPUT; CONT TO LEAK AROUND RANDOLPH. PT'S DAUGHTER YANA CALLED AT 0220 AND GIVEN UPDATE. WILL REPORT TO AM RN WHEN AVAILABLE.
--- NOTE | 2021-08-08 09:56 | NUR ---
ASSUMED CARE REPORT FROM ALICIA CLOUD AT 0700. PT RESTING IN BED. DENIES COMPLAINTS. REPORTS ADEQUATE SLEEP LAST NOC. A&OX 4. FOLLOWS COMMANDS. SO AT BEDSIDE. LEVO GTT FOR MAP>65. CURRENTLY RECEIVING DIALYSIS, TITRATING LEVO UP. LUNGS COARSE THROUGHOUT. MOIST COUGH. O2 TITRATED UP TO 3L VIA NC. ABD DISTENDED, TENDER. BT X 4. TOLERATING MEALS WELL. 1000ML FLUID RESTRICTION. RANDOLPH PATENT, DRAINING CLEAR YELLOW URINE TO GRAVITY. 2+ EDEMA TO BLE. TRIALYIS CATH TO [facility], DRESSING C/D/I. ABLE TO USE CALL LIGHT APPROPRIATELY AND MAKE NEEDS KNOWN. SO ASSISTS c TURNS AND CARE. WILL CONTINUE TO MONITOR.
--- NOTE | 2021-08-08 17:46 | NUR ---
SHIFT SUMMARY NO ACUTE CHANGES THIS SHIFT. DIALYSIS COMPLETE, 2200 ML OFF. LEVO TITRATED UP TO 6 MCG/MIN. PT LETHARGIC THIS SHIFT, SLEPT MOST OF SHIFT. WAKES c VERBAL STIMULI, A&O X4. POOR APPETITE THIS SHIFT. RANDOLPH PATENT, DRAINING TO GRAVITY. WILL CONTINUE TO MONITOR UNTIL REPORT TO ONCOMING NURSE.
--- NOTE | 2021-08-08 21:21 | NUR ---
ASSUMED CARE AT 1900 PT LAYING IN BED WATCHING TV DURING SHIFT CHANGE. PT IS ALERT/ORIENTED X4 AND ABLE TO MAKE HIS NEEDS KNOWN; PT C/O FEELING LETHARGIC. SPO2 >94% ON 1L NC. AFEBRILE. HR 60-70'S. SBP 100-110, MAP 65-70; LEVOPHED INFUSING AT 6MCG/MIN. ABD CONT TO BE MOD-SEVERE DISTENTION. PT RECIEVED DIALYSIS TODAY; LEAKING AROUND RANDOLPH NOTED. SEE SHIFT ASSESSMENT FOR FULL ASSESSMENT.
[2021-08-09 03:44] LABS: BASOPHILS ABSOLUTE AUTO 0.05 K/mm3 (0.00-0.23); BASOPHILS PERCENT AUTO 1 % (0-2); EOSINOPHILS ABSOLUTE AUTO 0.19 K/mm3 (0.00-0.68); EOSINOPHILS PERCENT AUTO 3 % (0-6); Hematocrit 25.3 % (37.0-53.0); Hemoglobin 8.8 g/dL (13.5-17.5); IMMATURE GRAN ABSOLUTE AUTO 0.17 K/mm3 (0.00-0.10); IMMATURE GRAN PERCENT AUTO 3 % (0-1); LYMPHOCYTES ABSOLUTE AUTO 0.67 K/mm3 (0.84-5.20); LYMPHOCYTES PERCENT AUTO 11 % (21-46); MONOCYTES ABSOLUTE AUTO 0.74 K/mm3 (0.16-1.47); MONOCYTES PERCENT AUTO 12 % (4-13); Mean Corpuscular HGB Conc 34.8 g/dL (31.5-36.5); Mean Corpuscular Volume 106 fL (80-100); Mean Platelet Volume 10.8 fL (9.1-12.4); NEUTROPHILS ABSOLUTE AUTO 4.17 K/mm3 (1.96-9.15); NEUTROPHILS PERCENT AUTO 70 % (41-73); RDW Coefficient Variation 16.6 % (11.7-14.2); RDW Standard Deviation 63.2 fL (35.1-46.3); Red Blood Cell Count 2.38 M/mm3 (4.30-5.90); White Blood Cell Count 5.99 K/mm3 (4.00-11.30)
[2021-08-09 03:49] LABS: Platelet Count 39 K/mm3 (150-400)
[2021-08-09 03:59] LABS: Albumin, Blood 3.2 g/dL (3.4-5.0); Albumin/Globulin Ratio 1.2 (0.8-1.8); Bilirubin, Direct 3.3 mg/dL (0.0-0.3); Bilirubin, Indirect 3.3 mg/dL (0.1-0.7); Bilirubin, Total 6.6 mg/dL (0.1-1.0); Bun/Creatinine Ratio 14.3 (12.0-20.0); Calcium, Blood 8.3 mg/dL (8.5-10.1); Creatinine, Blood 3.85 mg/dL (0.60-1.20); Globulin, Blood 2.7 g/dL (2.2-4.0); Percent Saturation 119.6 % (20.0-50.0); Potassium, Blood 4.1 mmol/L (3.5-5.5); Total Protein, Blood 5.9 g/dL (6.4-8.2)
--- NOTE | 2021-08-09 06:32 | NUR ---
END OF SHIFT SUMMARY NO ACUTE EVENTS OVERNIGHT, PT DID NOT SLEEP T/O THE NIGHT. PT IS ALERT/ ORIENTED X4 AND ABLE TO MAKE HIS NEEDS KNOWN. SPO2 >94% ON 1L NC TO RA. HR 60. SBP 100-110; MAP 65-70; LEVOPHED INFUSING AT 6MCG/MIN. RANDOLPH IN PLACE AND DRAINED 260ML. TRIALYSIS CATH DRESSING CHANGED THIS SHIFT DUE TO BEING SOILED. WILL REPORT TO AM RN WHEN AVAILABLE.
--- NOTE | 2021-08-09 18:39 | NUR ---
SUMMARY PT RESTING IN BED. A/O X4. STATES PAIN ALL OVER BODY HAS IMPROVED SINCE RECEIVING DIALYSIS. PT HAS REMAINED ON LEVOPHED. DOWN TO 2MCG FROM 6MCG. ATTEMPTED TO TITRATE OFF BUT PT BECAME HYPOTENSIVE. PT OOB WITH ONE PERSON ASSIST TODAY. THIS AM PT STATES THAT HE "POPPED A STITCH" IN HIS TRIALYSIS LINE. RN IN REPORT THIS AM DID NOT RELAY A ANY ISSUES WITH THE SUTURES OF THE CATH. THE DRESSING IS CLEAN AND INTACT. UNABLE TO SEE SUTURES THROUGH DRESSING. LET DR. PINEDA KNOW WHO SAID THAT IF THE DRESSING NEEDS TO BE DISTURBED FOR ANY REASON HE WILL LOOK AT IT AND POSSIBLEY STITCH, BUT IF IT IS SECURED WELL TO LEAVE IT ALONE FOR NOW. NO OTHER CHANGES THIS SHIFT.
--- NOTE | 2021-08-09 19:30 | NUR ---
RECEIVED PATIENT FROM PEDRO LUIS BALDERAS. PT SITTING UP IN BED, ARMS CROSSED BEHIND HIS HEAD, WATCHING TELEVISION. LEVOPHED AT 2MCG IN LEFT FOREARM, RIGHT NECK WITH TRIALYSIS CATHETER. VITALS STABLE. PT ABDOMEN LARGE ROUND DISTENDED, TAUT AND TENDER. STATES HE HAS EATEN SOME AND ISN'T FEELING SO WELL. ASKED FOR SOME WATER. RANDOLPH TO GRAVITY DRAINAGE PINK TINGED RETURN. BILATERAL LOWER EXTREMETIES WITH 2+ EDEMA TO CALF. LUNGS CLEAR AT THIS TIME.
--- NOTE | 2021-08-10 02:34 | NUR ---
PT CALLED FOR ASSISTANCE AND FOUND TO HAVE PULLED OUT THE TRIALYSIS CATHETER. HE STATED THAT HE WAS SCRATCHING THE AREA BECAUSE THE TAPE WAS BOTHERING HIM. PRESSURE HELD FOR AT LEAST 15MINUTES. [id number] AND OPSITE PLACED OVER WOUND. PT CLEANED UP AND REPOSITIONED. NOTIBLY WHEEZING AND RT CALLED FOR BREATHING TREATMENT. PT NOTED TO HAVE RASH OVER TRUNK, PT STATES THAT IT HAS BEEN PRESENT FOR OVER 24 HOURS. LEFT FOREARM IV SITE CONTINUES TO BE INTACT AND FLOWING WELL.
--- NOTE | 2021-08-10 03:09 | NUR ---
PT'S WHEEZING HAS IMPROVED. NO UPDRAFT GIVEN.
[2021-08-10 03:39] LABS: Hematocrit 26.7 % (37.0-53.0); Hemoglobin 9.3 g/dL (13.5-17.5); Mean Corpuscular HGB 37.1 pg (26.0-34.0); Mean Corpuscular HGB Conc 34.8 g/dL (31.5-36.5); Mean Corpuscular Volume 106 fL (80-100); Mean Platelet Volume 10.7 fL (9.1-12.4); RDW Standard Deviation 63.9 fL (35.1-46.3); Red Blood Cell Count 2.51 M/mm3 (4.30-5.90); White Blood Cell Count 5.85 K/mm3 (4.00-11.30)
--- NOTE | 2021-08-10 03:42 | NUR ---
PT NOW RECEIVING BREATHING TREATMENT FROM RT.
--- NOTE | 2021-08-10 03:48 | NUR ---
DION SAYS THE TREATMENT IS HELPING TO CLEAR THINGS UP AND OPEN THEM A LITTLE BIT IN THERE.
[2021-08-10 03:59] LABS: Albumin, Blood 2.9 g/dL (3.4-5.0); Bilirubin, Direct 3.1 mg/dL (0.0-0.3); Bilirubin, Indirect 2.9 mg/dL (0.1-0.7); Bun/Creatinine Ratio 14.2 (12.0-20.0); Calcium, Blood 8.4 mg/dL (8.5-10.1); Creatinine, Blood 4.02 mg/dL (0.60-1.20); Magnesium, Blood 1.8 mg/dL (1.6-2.4); Phosphorus, Blood 3.4 mg/dL (2.5-4.9); Potassium, Blood 3.4 mmol/L (3.5-5.5); Total Protein, Blood 5.9 g/dL (6.4-8.2)
[2021-08-10 04:02] LABS: Platelet Count 36 K/mm3 (150-400)
--- NOTE | 2021-08-10 05:06 | NUR ---
IN TO SEE DION, ASSESSED HIS LEG EDEMA, LOOKED AT LABS AND DISCUSSED THE NEED FOR REPLACING THE DIALYSIS CATHETER. HE WOULD LIKE DIALYSIS TO BE DONE TODAY AFTER PLACEMENT OF DIALYSIS CATHETER. ORDERS RECEIVED.
--- NOTE | 2021-08-10 06:02 | NUR ---
DION HAS BEEN SLEEPING ON AND OFF THROUGHOUT THE SHIFT. HE DID SCRATCH OUT HIS TRIALYSIS CATHETER, DID VISIT. HE CONTINUED ON THE NOREPINEPHRINE @ 2MCG/HR. CONTINUES WITH THE RANDOLPH CATHETER TO GRAVITY DRAINAGE WITH PINK RETURN. HE CONTINUES WITH RASH OVER HIS TRUNK, DOES NOT APPEAR TO BE MOVING OR GROWING. ONE EPISODE OF WHEEZING, IMPROVED. TOLERATED ONE FULL CUP OF WATER FOR THE 12 HOURS. EXPECT TO HAVE DIALYSIS TODAY AFTER PLACEMENT OF A NEW DIALYSIS CATHETER. WILL REPORT TO DAY SHIFT WHEN ABLE.
--- NOTE | 2021-08-10 18:06 | NUR ---
SUMMARY PT DID WELL TODAY. LEVOPHED WAS TURNED OFF AT 0830. DR. PINEDA AND DR. BASURTO DECIDED PT WAS OK WITHOUT DIALYSIS TODAY BASED ON LABS AND PT'S SWELLING IS IMPROVED. BP STABLE ALL DAY. DOWNGRADED TO PCU STATUSE. NO SIGN OF DISTRESS. CALL LIGHT IN REACH.
--- NOTE | 2021-08-10 19:50 | NUR ---
ASSUMED CARE OF PATIENT AT APPROXIMATELY 1900 FROM ANDREY Cardenas RN. PATIENT ALERT AND ORIENTED X4. PATIENT DENIES PAIN, NUMBNESS, TINGLING, DIZZINESS AND NAUSEA. PATIENT PICKS AT DRESSING ON RIGHT NECK AT TIMES. NSR ON HEART MONITOR; OXYGEN SATURATION ABOVE 90% ON 2LPM VIA NC. PIV X2 S/L. PCU STATUS.
[2021-08-11 03:03] LABS: Hematocrit 26.2 % (37.0-53.0); Hemoglobin 9.1 g/dL (13.5-17.5); Mean Corpuscular HGB 37.1 pg (26.0-34.0); Mean Corpuscular HGB Conc 34.7 g/dL (31.5-36.5); Mean Corpuscular Volume 107 fL (80-100); Mean Platelet Volume 11.5 fL (9.1-12.4); RDW Coefficient Variation 17.6 % (11.7-14.2); RDW Standard Deviation 65.3 fL (35.1-46.3); Red Blood Cell Count 2.45 M/mm3 (4.30-5.90)
[2021-08-11 03:32] LABS: Platelet Count 38 K/mm3 (150-400)
[2021-08-11 03:49] LABS: Albumin, Blood 2.8 g/dL (3.4-5.0); Bilirubin, Total 6.2 mg/dL (0.1-1.0); Bun/Creatinine Ratio 15.3 (12.0-20.0); Calcium, Blood 8.3 mg/dL (8.5-10.1); Creatinine, Blood 4.18 mg/dL (0.60-1.20); Globulin, Blood 2.8 g/dL (2.2-4.0); Phosphorus, Blood 3.8 mg/dL (2.5-4.9); Potassium, Blood 3.8 mmol/L (3.5-5.5); Total Protein, Blood 5.6 g/dL (6.4-8.2)
--- NOTE | 2021-08-11 06:47 | NUR ---
PATIENT SLEPT ABOUT EIGHT HOURS LAST NIGHT. NO ACUTE CHANGES TO REPORT.
--- NOTE | 2021-08-11 13:42 | NUR ---
Pt resting better improvements noted. Will follow up with advance care planning for future needs. Will follow up with family and SO for support.
--- NOTE | 2021-08-11 17:09 | NUR ---
SUMMARY PT A/O X4. DID NOT GET A DIALYSIS CATH TODAY. DR. BASURTO AND DR. PINEDA IN CONTACT AND DECIDED HIS LABS AND URINE OUTPUT LOOKED OK FOR TODAY AND WILL HOLD OFF ON DIALYSIS CATH AND RE-EVAL TOMORROW. PT WAS OOB TO CHAIR WITH 1 PERSON MINIMAL ASSIST. DROWSY TODAY FROM TAKING BENADRYL FOR RASH THAT IS ON ABD, BACK AND DOWN LEGS. NO OTHER CHANGES TODAY. PCU STATUS.
--- NOTE | 2021-08-11 18:45 | NUR ---
Spoke with SO. Distraught over not being able to see pt and stressing over her cancer care. Pt and SO were planning on marriage very distruaght. have some conflicet with family over visitation. Will further sort ourt out the details. Pt improving will try to speak with him tomorrow about his wishes.
--- NOTE | 2021-08-11 20:28 | NUR ---
PATIENT SLEEPING, AWAKENS TO VERBAL STIMULI. POSITIONING SELF IN BED FOR COMFORT. GENERALIZED 2+ EDEMA. ABD ROUND AND FIRM. RANDOLPH DRAINING HAZY YELLOW URINE WITH WHITE AND BLOODY SEDIMENT. 2L/NC IN PLACE LUNG SOUNDS DECREASED BASES.
[2021-08-12 03:56] LABS: Hematocrit 28.3 % (37.0-53.0); Hemoglobin 9.7 g/dL (13.5-17.5)
[2021-08-12 04:10] LABS: Albumin, Blood 2.9 g/dL (3.4-5.0); Anion Gap 7 mmol/L (6-16); Blood Urea Nitrogen 70 mg/dL (8-24); Bun/Creatinine Ratio 16.4 (12.0-20.0); CO2, Blood 28 mmol/L (21-32); Calcium, Blood 8.6 mg/dL (8.5-10.1); Chloride, Blood 100 mmol/L (98-108); Creatinine, Blood 4.26 mg/dL (0.60-1.20); Glomerular Filtration Rate 14 (60-); Glucose, Blood 100 mg/dL (70-99); Magnesium, Blood 2.2 mg/dL (1.6-2.4); Potassium, Blood 3.8 mmol/L (3.5-5.5); Sodium, Blood 135 mmol/L (136-145)
--- NOTE | 2021-08-12 05:41 | NUR ---
SUMMARY PATIENT SLEEPING OFF AND ON T/O NIGHT, REPOSITIONING SELF IN BED FOR COMFORT. UP TO TOILET THIS AM PASSING BROWN SOFT BM, PATIENT VERBALIZED HE HAD A SMALL AMT OF BRIGHT RED ON THE TP DUE TO "HEMORROIDS". AMBULATING WITH MIN ASSIST WITH WALKER. HYPOTENSION CONTINUES MAINTAINING MAP >60 INSPRA HELD, LEVOPHED REMAINS OFF. NO C/O DIZZINESS WHEN UP. BRIGHT RED PATCHY RASH CONTINUES FROM CHEST TO UPPER THIGH.
--- NOTE | 2021-08-12 09:00 | NUR ---
ASSUMPTION OF CARE PT A&OX4. APPEARS JAUNDICE IN SKIN AND SCLERA. O2 TITRATED TODAY FROM 2L NC TO 1L NC. SR 60S-70S. MAPS 63-65. BLE EDEMA +3. ABDOMEN DISTENDED, SOFT. MINIAL FOOD INTAKE, DISCUSSED WITH DIETARY. RASH ON ABDOMEN REMAINS RED, SPLOTCHY. ALBUMIN D/C'D PER / ZEN. PT BELIEVES RASH MAY BE DUE TO ALBUMIN HIS RASH BECAME ITCHIER WHEN ALBUMIN WAS RUNNING, AND LESS ITCHY AFTER INFUSION.
--- NOTE | 2021-08-12 16:38 | NUR ---
met with pt to review symptoms he denies headache or blurred vision he is swallowing ok. He does have some chronic stomach upset that is mild he also has significant dry sore mouth. He has chronic pain especially in his low back. He struggles with pain management due to his liver and kidneys and tolerating medications. He is possibly having dialysis and a tap tomorrow advised will try some icing of the low back and look at a lidocaine patch after we get some fluid off.
--- NOTE | 2021-08-12 18:29 | NUR ---
NO ACUTE EVENTS THIS SHIFT. A&OX4. PT SAT IN CHAIR FOR 2 HOURS THIS AFTERNOON. WEAK UPON STANDING BUT ABLE TO BEAR HIS OWN WEIGHT. RASH STILL PRESENT ON ANTERIOR AND POSTERIOR TRUNK AND LEGS. TREATED WITH PRN BENADRYL. 1L NC WITH SATS >92. BP STABLE WITH MAPS 63-65. SR 60S-70S. 350 CC ORANGE UOP THIS SHIFT. COMPLAINS OF GENERAL DISCOMFORT IN ABDOMEN/BACK BUT DESCRIBES TOLERABLE.
--- NOTE | 2021-08-12 20:22 | NUR ---
PATIENT AWAKENS TO SLIGHT STIMULI. VERBALIZED THAT HE IS FEELING BETTER TODAY AND IS WANTING TO GO HOME SOON. VERBALIZED THAT HIS ITCHING HAS IMPROVED. RED SPLOTCHY RASH CONTINUES FROM MED CHEST TO UPPER THIGHS. PATIENT POSITIONING SELF IN BED FOR COMFORT. LUNG SOUNDS CONTINUE TO BE DECREASED BASES ON 1L/NC TO MAINTAIN BIOX > 90% RANDOLPH DRAINING DARK ORANGE URINE. GENERALIZED EDEMA AND JAUNDICE CONTINUE
--- NOTE | 2021-08-12 22:50 | NUR ---
PLAN TO TRANSFER PATIENT TO [facility] VIA W/C. REPORT GIVEN TO TERESA CLOUD
--- NOTE | 2021-08-13 00:50 | NUR ---
TRANSFER PT TRANSFERED FROM ICU WITHOUT INCIDENT.
[2021-08-13 05:18] LABS: Hematocrit 25.6 % (37.0-53.0)
[2021-08-13 06:00] LABS: Albumin, Blood 2.8 g/dL (3.4-5.0); Anion Gap 11 mmol/L (6-16); Blood Urea Nitrogen 76 mg/dL (8-24); Bun/Creatinine Ratio 18.4 (12.0-20.0); CO2, Blood 24 mmol/L (21-32); Calcium, Blood 8.4 mg/dL (8.5-10.1); Chloride, Blood 100 mmol/L (98-108); Creatinine, Blood 4.12 mg/dL (0.60-1.20); Glomerular Filtration Rate 15 (60-); Glucose, Blood 94 mg/dL (70-99); Phosphorus, Blood 3.7 mg/dL (2.5-4.9); Potassium, Blood 3.5 mmol/L (3.5-5.5); Sodium, Blood 135 mmol/L (136-145)
--- NOTE | 2021-08-13 13:35 | NUR ---
pt gave verbal consent for publications writer to provide care
--- NOTE | 2021-08-13 14:06 | NUR ---
Spiritual Care visit. Pt. was reclining in bed and welcomed my visit. Re-established rapport. Pt. verbalized gratitude for being moved from noisy ICU room. Pt. anticipates discharge once his tests show he is stable. Pt. verbalized gratitude or many people praying for him. Reinforced helpful attitudes and practices. Pt. displayed encouragement and improved hope. Pt. verbalized his gratitude for the care received and for the visit. Prayed with pt. Will monitor and consider pt. sources for spiritual care before he is discharged.
--- NOTE | 2021-08-13 19:25 | NUR ---
SHIFT SUMMARY PT IS A&O, PLEASANT AND CO-OP. PER REPORT, PT TX'D FROM ICU; ADMITTED FOR HEPATIC CIRRHOSIS. ABD VERY DISTENDED AND FIRM. PT UNABLE TO HAVE PARACENTESIS TODAY D/T PLATELETS AT 38. RADIOLOGY CALLED TO STATE THAT PLATELETS WOULD NEED TO BE GREATER THAN 50 WITH LABS SHOWING PTT AND INR AFTERWARDS. PT WITH HX OF ETOH ABUSE AND CKD. PT W/O DIALYSIS ACCESS. PT WITH RANDOLPH CATH; PATENT AND DRAINING ORANGE/TEA COLORED URINE. PT ON STRICT FLUID RESTRICTION. RASH COVERING ABD AND DOWN THIGHS; PER REPORT, POSSIBLE REACTION TO ALBUMIN. BENEDRYL GIVEN PER EMAR AND HYDROCORTASONE CREAM APPLIED. VISITOR IN THIS AFTERNOON. PT ABLE TO GET UP TO EOB AND BACK INTO BED ON HIS OWN. 1P ASSIST USING FWW TO BTHRM NEEDED. PT TALKING ON PHONE OFF AND ON. DENIED FURTHER NEEDS. CALL LT IN REACH.
--- NOTE | 2021-08-14 06:28 | NUR ---
SHIFT SUAMMRY A&OX4, FATIGUED, REPORTS FEELING CLOUDY AND MORE TIRED THEN USAUL. HAD A GOOD STRECH OF SLEEP ON NOC. COARSE LUNGS, WHEEZE, ON 5L. NO ADVENTIOUS HEART SOUNDS. 2+ PITTING EDEMA TO BLE AND ABDOMEN. ASCITIES. RANDOLPH WITH ADEQUATE OUTPUT. CLEAR ORANGE. JAUNDICE, RASH TO ABD, BACK, AND BILATERAL UPPER THIGHS. PATIENT IS COMPLIANT WITH FLUID RESTRICTION.
[2021-08-14 07:19] LABS: Albumin, Blood 2.7 g/dL (3.4-5.0); Anion Gap 8 mmol/L (6-16); Blood Urea Nitrogen 78 mg/dL (8-24); Bun/Creatinine Ratio 18.7 (12.0-20.0); CO2, Blood 27 mmol/L (21-32); Calcium, Blood 8.2 mg/dL (8.5-10.1); Chloride, Blood 99 mmol/L (98-108); Creatinine, Blood 4.17 mg/dL (0.60-1.20); Glomerular Filtration Rate 15 (60-); Glucose, Blood 90 mg/dL (70-99); Phosphorus, Blood 3.9 mg/dL (2.5-4.9); Potassium, Blood 3.5 mmol/L (3.5-5.5); Sodium, Blood 134 mmol/L (136-145)
--- NOTE | 2021-08-14 07:30 | NUR ---
ASSUMED CARE: PT RESTING QUIETLY AT THIS TIME. NO ACUTE NEEDS OR CONCERNS AT THIS TIME.
[2021-08-14 07:48] LABS: Hematocrit 25.3 % (37.0-53.0); Mean Corpuscular HGB 37.7 pg (26.0-34.0); Mean Corpuscular HGB Conc 35.6 g/dL (31.5-36.5); Mean Corpuscular Volume 106 fL (80-100); Mean Platelet Volume 11.2 fL (9.1-12.4); RDW Coefficient Variation 17.8 % (11.7-14.2); RDW Standard Deviation 67.7 fL (35.1-46.3); Red Blood Cell Count 2.39 M/mm3 (4.30-5.90); White Blood Cell Count 8.34 K/mm3 (4.00-11.30)
[2021-08-14 07:54] LABS: Platelet Count 43 K/mm3 (150-400)
[2021-08-14 08:02] LABS: Bun/Creatinine Ratio 18.6 (12.0-20.0); Calcium, Blood 8.6 mg/dL (8.5-10.1); Creatinine, Blood 4.25 mg/dL (0.60-1.20); Potassium, Blood 3.6 mmol/L (3.5-5.5)
--- NOTE | 2021-08-14 10:00 | NUR ---
PT HAD CRITICAL PLATELET LEVEL. [facility] CALLED FOR PARACENTESIS ORDER AND STATED THAT THEY NEEDED AN INR LEVEL AND PLATELETS NEEDED TO BE ABOVE 50 TO PERFORM EXAM. CALL TO DR ZALDIVAR WHO AGREED WITH RECIEVING LAB FOR INR AND TO COORDINATE WITH ULTRASOUND FOR PLATELET ADMINISTRATION.
[2021-08-14 10:21] LABS: Albumin, Blood 2.7 g/dL (3.4-5.0)
[2021-08-14 11:32] LABS: International Normalized Ratio 2.58; Prothrombin Time Results 25.5 Sec (9.7-11.5)
--- NOTE | 2021-08-14 13:30 | NUR ---
[facility] REVIEWED INR RESULT AND STATED THAT INR NEEDS TO BE BELOW 2 AND PLATELETS NEED TO BE GREATER THAN [address]. CALL [address] ZALDIVAR WHO STATES TO GIVE A DOSE OF VITAMIN K, REPEAT INR IN AM AND HOLD PLATELETS TODAY. INSTRUCTED DIET CONSULTANT TO COORDINATE WITH NURSE TOMORROW FOR ULTRASOUND PARACENTESIS PLANS AND TO ATTEMPT TEST TOMORROW. VITAMIN K INFUSING AT THIS TIME.
--- NOTE | 2021-08-14 16:40 | NUR ---
Spiritual Care Visit. Pt. is alert and layingin bed. Pt. welcomes my visit. Rapport is re-established. Pt. was unsettled about how his family was reposnding to his hospitalization. Listened empathetically and provided pastoral counseling services manager. Explored issues of taj and belief, and how the family does not agree on significant issues. Pt. displayed evidence of reduced stress and renewed hope. Pt. verbalized his desire to fight through the hard times in order regain health. Prayed with pt. and will consider what motivates his taj in a future visit.
--- NOTE | 2021-08-14 18:24 | NUR ---
SHIFT SUMMARY: PLAN FOR PARACENTESIS TO BE COMPLETED TOMORROW IF LAB VALUES ALLOW. PT RECIEVED VITAMIN K TODAY AND WILL RECIEVE PLATELETS WHEN PARACENTESIS IS ABLE TO BE DONE. NO FURTHER NEEDS OR CONCERNS AT THIS TIME.
[2021-08-15 05:50] LABS: Hematocrit 26.7 % (37.0-53.0); Hemoglobin 9.5 g/dL (13.5-17.5); Mean Corpuscular HGB 37.1 pg (26.0-34.0); Mean Corpuscular HGB Conc 35.6 g/dL (31.5-36.5); Mean Corpuscular Volume 104 fL (80-100); Mean Platelet Volume 10.4 fL (9.1-12.4); RDW Coefficient Variation 17.8 % (11.7-14.2); RDW Standard Deviation 67.2 fL (35.1-46.3); Red Blood Cell Count 2.56 M/mm3 (4.30-5.90); White Blood Cell Count 8.34 K/mm3 (4.00-11.30)
[2021-08-15 05:54] LABS: International Normalized Ratio 2.28; Prothrombin Time Results 22.7 Sec (9.7-11.5)
[2021-08-15 05:56] LABS: Platelet Count 47 K/mm3 (150-400)
[2021-08-15 06:25] LABS: Albumin, Blood 2.8 g/dL (3.4-5.0); Anion Gap 11 mmol/L (6-16); Blood Urea Nitrogen 82 mg/dL (8-24); Bun/Creatinine Ratio 20.4 (12.0-20.0); CO2, Blood 26 mmol/L (21-32); Calcium, Blood 8.7 mg/dL (8.5-10.1); Chloride, Blood 98 mmol/L (98-108); Creatinine, Blood 4.01 mg/dL (0.60-1.20); Glomerular Filtration Rate 16 (60-); Glucose, Blood 92 mg/dL (70-99); Phosphorus, Blood 3.4 mg/dL (2.5-4.9); Potassium, Blood 3.6 mmol/L (3.5-5.5); Sodium, Blood 135 mmol/L (136-145)
--- NOTE | 2021-08-15 07:11 | NUR ---
PATIENT VERY SOMNOLENT LAST NIGHT. NO COMPLAINTS OF PAIN OR DISCOMFORT. PLATELETS TODAY IMPROVED TO 47. CREATININE 4.[address] BASURTO AWARE. SEE NEW ORDERS FOR LASIX 120MG TID. STILL HOPING FOR PARACENTESIS SOON.
--- NOTE | 2021-08-15 07:30 | NUR ---
ASSUMED CARE: PT SITTING AT SIDE OF BED. NO NEEDS OR CONCERNS AT THIS TIME.
--- NOTE | 2021-08-15 10:11 | NUR ---
ULTRASOUND CALLED TO DISCUSS PT'S LAB VALUES AND PLAN FOR PARACENTESIS. DISCUSSED WITH DR ZALDIVAR WHO ORDERS FOR REPEAT INR LATER TODAY AND WANTS TO BE CALLED WITH RESULT TO DETERMINE INTERVENTIONS SO THAT PARACENTESIS CAN BE DONE. PT AWARE AND AGREEABLE TO THIS PLAN. NO FURTHER NEEDS AT THIS TIME.
[2021-08-15 13:16] LABS: International Normalized Ratio 2.28; Prothrombin Time Results 22.7 Sec (9.7-11.5)
--- NOTE | 2021-08-15 14:43 | NUR ---
PT'S INR STILL ELEVATED. SPOKE WITH WIRE WALKER REGARDING THIS. CALL TO DR ZALDIVAR WHO INSTRUCTED FOR VITAMIN K. ASKED ABOUT FFP AND FELT THAT WOULD NOT BE EFFECTIVE. PLAN TO RECECK INR IN AM. ULTRASOUND AWARE THAT WE ARE DELAYING ULTRASOUND UNTIL TOMORROW.
--- NOTE | 2021-08-15 15:19 | NUR ---
Spoke to pt and his girlfriend Maria M today. Pt states he's feeling "much better", and no longer feels like he is going to everyday. This has lessened the anxiety for both of them. At this time, no word yet on how much longer pt will remain hospitalized, as complications have continued to arise, keeping him from recovery. He does state he's now accepted the fact that this may be a slow process. I will continue to update pt's girlfriend, and remain available to pt.
--- NOTE | 2021-08-15 16:03 | NUR ---
RN ENTERED ROOM AND DISCUSSED PT'S LASIX WITH HIM. PT STATES HE ALWAYS FEELS LIKE HE NEEDS TO VOID AND HAS A RANDOLPH CATH IN PLACE. ASKED IF IT IS SOMETIMES PAINFUL, IF IT FEELS LIKE SPASMS AND PT STATED THAT SOMETIMES IT IS UNCOMFORTABLE. CALL TO DR ZALDIVAR WHO ORDERED FLOMAX AND STATED HE WOULD LOOK INTO PYRIDIUM TO SEE IF IT IS CONTRAINDICATED WITH HEPATORENAL SYNDROME. WILL MAKE PT AWARE
--- NOTE | 2021-08-15 18:32 | NUR ---
SHIFT SUMMARY: PT'S FAMILY GIVEN UPDATE BY DR ZALDIVAR AND THIS RN. PLAN IS FOR CONTINUED MEDICAL THERAPY UNTIL STABLE FOR DC. DR ZALDIVAR HOPES TO GET PARACENTESIS DONE PRIOR TO DC. DR BASURTO CONTINUING TO MEDICALLY MANAGE KIDNEYS IN HOPES THAT DIALYSIS WILL NOT BE REQUIRED. NO FURTHER NEEDS OR CONCERNS AT THIS TIME.
[2021-08-16 04:44] LABS: Hematocrit 26.5 % (37.0-53.0); Hemoglobin 9.3 g/dL (13.5-17.5)
[2021-08-16 04:58] LABS: International Normalized Ratio 2.23; Prothrombin Time Results 22.2 Sec (9.7-11.5)
[2021-08-16 05:07] LABS: Albumin, Blood 2.8 g/dL (3.4-5.0); Anion Gap 11 mmol/L (6-16); Blood Urea Nitrogen 82 mg/dL (8-24); Bun/Creatinine Ratio 20.8 (12.0-20.0); CO2, Blood 26 mmol/L (21-32); Calcium, Blood 8.9 mg/dL (8.5-10.1); Chloride, Blood 97 mmol/L (98-108); Creatinine, Blood 3.94 mg/dL (0.60-1.20); Glomerular Filtration Rate 16 (60-); Glucose, Blood 96 mg/dL (70-99); Phosphorus, Blood 3.2 mg/dL (2.5-4.9); Potassium, Blood 3.4 mmol/L (3.5-5.5); Sodium, Blood 134 mmol/L (136-145)
--- NOTE | 2021-08-16 06:46 | NUR ---
Patient was again very somnolent and appeared groggy when we conversed last night. he expressed frustration about feeling like he isn't as sharp as he was, and couldn't remember things. Significant other, Maria M is also concerned about this change. She was asking about his most recent ammonia level which looks like it was drawn on the . at that point, it had dropped from 48 on admit to 28 on the 11th. Asking if one would be drawn today. No complaints of pain or discomfort. just fullness
[2021-08-16 07:49] LABS: Hematocrit 26.1 % (37.0-53.0); Hemoglobin 9.2 g/dL (13.5-17.5); Mean Corpuscular HGB 36.8 pg (26.0-34.0); Mean Corpuscular HGB Conc 35.2 g/dL (31.5-36.5); Mean Corpuscular Volume 104 fL (80-100); Mean Platelet Volume 12.1 fL (9.1-12.4); RDW Coefficient Variation 18.1 % (11.7-14.2); White Blood Cell Count 6.34 K/mm3 (4.00-11.30)
[2021-08-16 07:52] LABS: Platelet Count 46 K/mm3 (150-400)
[2021-08-16 12:55] LABS: International Normalized Ratio 2.42
--- NOTE | 2021-08-16 17:03 | NUR ---
ADVISED DR ZALDIVAR PT IS BLEEDING SOME RECTALLY. BRITE RED, PT STATES MAY BE HEMMORRHOIDS. ALSO SOMEM DARKER WINE COLOR TO URINE IN RANDOLPH. DR EXPECTS. NO NEW ORDERS.
--- NOTE | 2021-08-16 18:18 | NUR ---
PT PLEASANT TODAY. DID HAVE SOME BLEEDING AT RECTAL AREA. WAS ON BAXER PAD. REPLACED. OBSERVED AROUND RECTAL AREA. NO BLOOD OR TEAR AREAS AT THIS TIME. ALSO OBSERVED SOME BLOODY WINE COLORED URINE IN RANDOLPH COLLECTION. CALLED DR ZALDIVAR. EXPECTED WITH CONDITION. NO NEW ORDERS. DID PLACE HAT IN COMMODE TO MONITOR AMT. INR STILL ELEVATED. DISCUSSED PRBC. DR AGUILAR AT THIS TIME. VIT K ADMIN DAILY. BED IN LOW POSITION, CALL LITE IN REACH, CALLS APPORP
[2021-08-17 04:29] LABS: Hematocrit 24.4 % (37.0-53.0); Hemoglobin 8.7 g/dL (13.5-17.5); Mean Corpuscular HGB 37.3 pg (26.0-34.0); Mean Corpuscular HGB Conc 35.7 g/dL (31.5-36.5); Mean Corpuscular Volume 105 fL (80-100); Mean Platelet Volume 11.4 fL (9.1-12.4); RDW Coefficient Variation 18.2 % (11.7-14.2); RDW Standard Deviation 68.4 fL (35.1-46.3); Red Blood Cell Count 2.33 M/mm3 (4.30-5.90); White Blood Cell Count 6.16 K/mm3 (4.00-11.30)
[2021-08-17 04:36] LABS: Platelet Count 44 K/mm3 (150-400)
--- NOTE | 2021-08-17 04:58 | NUR ---
TRANSCRIPTION COORDINATOR SUMMARY PT ADMITTED FOR HEPATIC CIRRHOSIS. LIMITED CODE - INTUBATION AND MEDICATIONS. PLAN FOR DC AFTER PARACENTESIS. PT HAS BEEN UNABLE TO GET PARACENTESIS DUE TO INCREASED INR LEVEL. PT IS VERY JAUNDICED. CURRENTLY RECEIVING IV LASIX. NO BLOOD IN BMS. TEA-COLORED URINE DRAINING TO RANDOLPH. PT IS SLIGHTLY CONFUSED BUT ORIENTED. BEING TREATED WITH LACTULOSE FOR INCREASED AMMONIA. 1000 ML FLUID RESTRICTION. PT DENIES ANY PAIN. NO OTHER CONCERNS THIS SHIFT.
[2021-08-17 05:01] LABS: Albumin, Blood 2.8 g/dL (3.4-5.0); Anion Gap 10 mmol/L (6-16); Blood Urea Nitrogen 80 mg/dL (8-24); Bun/Creatinine Ratio 22.3 (12.0-20.0); CO2, Blood 25 mmol/L (21-32); Calcium, Blood 8.8 mg/dL (8.5-10.1); Chloride, Blood 97 mmol/L (98-108); Creatinine, Blood 3.58 mg/dL (0.60-1.20); Glomerular Filtration Rate 18 (60-); Glucose, Blood 125 mg/dL (70-99); Magnesium, Blood 1.9 mg/dL (1.6-2.4); Phosphorus, Blood 3.2 mg/dL (2.5-4.9); Potassium, Blood 3.5 mmol/L (3.5-5.5); Sodium, Blood 132 mmol/L (136-145)
--- NOTE | 2021-08-17 10:54 | NUR ---
PT PLEASANT A/O X3, ADMITS SOME CONFUSION. JAUNDICED. H/R REG, NO MURMER NOTED. NO TELE. EDEMA BLE X4. LUNGS CLEAR, RESP EASY, UNLABORED. ON 2 L N/C. TURNED DOWN TO 1L AND IS HOLDING AT 92%. BT X4 LAST BM YEST. QUITE DISTENDED, ROUND. CIRRHOSSIS. VOIDS RANDOLPH CATH, YELLOW FLUID IN COLLECTION. NOT SHOWING RED AT THIS TIME. NO RED NOTED IN COMMODE HAT TODAY. DISCUSSED REDNESS/RASH INCREASED YESTERDAY WITH DR MEZA. WILL LOOK TO ADD BENADRYL. BED IN LOW POSITION, CALL LITE IN REACH, CALLS APPROP
--- NOTE | 2021-08-17 17:31 | NUR ---
PT PLEASANT TODAY. NO C/O PAIN. GIRLFRIEND CALLED TODAY. WAS CONCERNED ABOUT LABS ETC. SET UP HIS FACETIME FOR THEM ON HIS CELL PHONE. TALKED ABOUT LABS WITH DR MEZA TODAY. OBTAINED BENEYL FOR RASH. WILL CONTINUE TO MONITOR TO SEE WHEN CAN DO ABD TAP, OR IF CAN. NO NEW CONCERNS NOTED. NO NOTED RED COLOR TO URINE IN RANDOLPH, PT DENIES ANY BLOOD IN HAT IN COMMODE. NONE OBSERVED TODAY. BED IN LOW POSITION, CALL LITE IN REACH, CALLS APPROP.
[2021-08-18 05:01] LABS: International Normalized Ratio 2.71; Prothrombin Time Results 26.7 Sec (9.7-11.5)
[2021-08-18 05:49] LABS: Albumin, Blood 2.5 g/dL (3.4-5.0); Anion Gap 12 mmol/L (6-16); Blood Urea Nitrogen 78 mg/dL (8-24); Bun/Creatinine Ratio 23.4 (12.0-20.0); CO2, Blood 25 mmol/L (21-32); Chloride, Blood 95 mmol/L (98-108); Creatinine, Blood 3.33 mg/dL (0.60-1.20); Glomerular Filtration Rate 19 (60-); Glucose, Blood 115 mg/dL (70-99); Magnesium, Blood 1.9 mg/dL (1.6-2.4); Phosphorus, Blood 3.6 mg/dL (2.5-4.9); Potassium, Blood 3.4 mmol/L (3.5-5.5); Sodium, Blood 132 mmol/L (136-145)
--- NOTE | 2021-08-18 06:13 | NUR ---
DATA ENTRY SPECIALIST SUMMARY PT AWAITING IMPROVEMENT IN LIVER FUNCTION. ALSO AWAITING PARACENTESIS. LACTULOSE HELD AT HS DUE TO MULTIPLE EPISODES OF DIARRHEA THROUGHOUT THE DAY. PT REPORTS FEELING IMPROVED THIS MORNING AND APPEARS MORE ALERT AND TALKATIVE. LESS CONFUSION. PT STILL WITH 3+ PITTING EDEMA TO BLE. RASH APPEARS IMPROVED FROM LAST NIGHT BUT HE STATES IT IS STILL ITCHY BUT REFUSES BENADRYL SINCE IT MAKES HIM SLEEPY. NO OTHER CONCERNS THIS SHIFT.
--- NOTE | 2021-08-18 10:03 | NUR ---
LEXI RANDOLPH SPOKE WITH DR. MEZA ABOUT PT RANDOLPH. RANDOLPH IS LEAKING AND PT STATES HE NORMALLY DOES NOT NEED ONE. DR. MEZA ORDERED TO REMOVE RANDOLPH. PT TOLERATED REMOVAL WELL.
--- NOTE | 2021-08-18 17:45 | NUR ---
SHIFT SUMMARY PT RANDOLPH REMOVED THIS AM AND IS VOIDING WELL IN THE BATHROOM. DARK YELLOW URINE. LACTULOSE WORKING WELL WITH MULTIPLE LOOSE BMS TODAY. PT MENTATION IMPROVING AND FOLLOWING DIRECTION WELL. FOLLOWING FLUIDS RESTRICTION WELL. PALLIATIVE CARE FOLLOWING PT. PT AMBULATING WELL TO BATHROOM WITH MINIMAL ASSISTANCE. NO OTHER ACUTE CHANGES IN ASSESSMENT AT THIS TIME. VS REVIEWED. CALL LIGHT IN REACH. DENIES OTHER NEEDS AT THIS TIME.
--- NOTE | 2021-08-19 05:01 | NUR ---
SHIFT SUMMARY 56 YR M ADMITTED ON 08/02/21 FOR DECOMPENSATED HEPATIC CIRRHOSIS. LIMITED CODE ( MEDS AND INTUBATION). PT HAD ELEVATED AMMONIA LEVEL AND HAS BEEN TAKING LACTULOSE TO ENCOURAGE BOWEL MOVEMENTS TO BRING AMMONIA LEVEL DOWN. ON THIS SHIFT PT HAS HAD 5 BOWEL MOVEMENTS AND IS VERY GOOD ABOUT USING THE BATHROOM INDEPENDANTLY THEN CALLING THE NURSE TO DOCUMENT THE WASTE. HE IS ALSO DIURESING AND APPEARS TO BE PULLING WATER OFF WELL. 1000 ML FLUID RESTRICTION/DAY.
[2021-08-19 05:17] LABS: Hematocrit 24.5 % (37.0-53.0); Hemoglobin 8.7 g/dL (13.5-17.5)
[2021-08-19 05:44] LABS: Albumin, Blood 2.6 g/dL (3.4-5.0); Anion Gap 9 mmol/L (6-16); Blood Urea Nitrogen 80 mg/dL (8-24); Bun/Creatinine Ratio 24.8 (12.0-20.0); CO2, Blood 27 mmol/L (21-32); Chloride, Blood 93 mmol/L (98-108); Creatinine, Blood 3.23 mg/dL (0.60-1.20); Glomerular Filtration Rate 20 (60-); Glucose, Blood 112 mg/dL (70-99); Phosphorus, Blood 4.4 mg/dL (2.5-4.9); Potassium, Blood 5.2 mmol/L (3.5-5.5); Sodium, Blood 129 mmol/L (136-145)
--- NOTE | 2021-08-19 16:19 | NUR ---
SHIFT SUMMARY [id number]. PT IND/ SBY IN ROOM. VOIDING REGULARILY. 4+ PITTING EDEMA REMAINS, DIURETICS PER EMAR. PT TOLERATING WELL, OCCASIONAL SOB REPORTED BUT DENIES AT REST. PT IS UP IN CHAIR FOR MAJORITY OF SHIFT. TOLERATING PO WELL, PT ACTIVELY FOLLOWING FLUID RESTRICTION. MULTIPLE BM'S R/T LACTULOSE.
--- NOTE | 2021-08-20 04:27 | NUR ---
SHIFT SUMMARY 56 YR M ADMITTED ON 08/12/21 FOR DECOMPENSATED HEPATIC CIRRHOSIS. LIMITED CODE (MEDS AND INTUBATION). PT IS ON A 1000 ML FLUID RESTRICTION AND IS CONSTANTLY ASKING FOR WATER. HE STATES THAT HIS THROAT GETS SO DRY HE CAN'T SWALLOW. HE IS INDEPENDANT TO THE BATHROOM BUT CAN BE A BIT SHAKY AT TIMES. HE OCCASIONALLY NEEDS HELP GETTING A NEW PULL UP ON OR PULLING IT UP. HE USES CALL LIGHT APPROPRIATELY. PT STATES HE IS GETTING FRUSTRATED THAT HE IS SEEING DIFFERENT DOCS DAILY AND THAT HIS REGIMEN KEEPS GETTING CHANGED BUT NOTHING SEEMS TO BE WORKING. HE EXPRESSED THAT HE WANTS SOME ANSWERS TO A SOLID PLAN AND WHEN HE MAY BE ABLE TO GO HOME. HE STATES HE DOES NOT UNDERSTAND WHY THE "FLUID" IS NOT COMING OFF OF HIM AND HIS FEET ARE STILL VERY SWOLLEN EVEN THOUGH HE IS ON FLUID RESTRICTION AND DIURETICS.
[2021-08-20 05:04] LABS: Hematocrit 23.5 % (37.0-53.0); Hemoglobin 8.4 g/dL (13.5-17.5)
[2021-08-20 05:44] LABS: Albumin, Blood 2.5 g/dL (3.4-5.0); Anion Gap 11 mmol/L (6-16); Blood Urea Nitrogen 79 mg/dL (8-24); Bun/Creatinine Ratio 24.5 (12.0-20.0); CO2, Blood 28 mmol/L (21-32); Calcium, Blood 8.9 mg/dL (8.5-10.1); Chloride, Blood 94 mmol/L (98-108); Creatinine, Blood 3.22 mg/dL (0.60-1.20); Glomerular Filtration Rate 20 (60-); Glucose, Blood 112 mg/dL (70-99); Phosphorus, Blood 4.7 mg/dL (2.5-4.9); Sodium, Blood 133 mmol/L (136-145)
[2021-08-20 05:51] LABS: Prothrombin Time Results 27.2 Sec (9.7-11.5)
[2021-08-20 05:52] LABS: International Normalized Ratio 2.77
[2021-08-20] MEDS ORDERED: SPIRONOLACTONE50 MG PO (13:05)
--- NOTE | 2021-08-20 16:11 | NUR ---
Pt. was in bed and alert. Spouse is present. Both welcomed my visit. Rapport re-established and facilitated medical update. Pt. had been unsettled by the percieved lack of colaboration among the medical staff treating him. Listened empathetically. Reinforced helpful attitudes and practices. Pt. amd spouse displayed unified evidence of a clear path leading to discharge. Both pt. and spouse verbalized increased courage to address the challenges after discharge. Prayed with Pt. and spouse. Pt. verbalized gratitude for prayer and visit.
--- NOTE | 2021-08-20 18:19 | NUR ---
SHIF SUMMARY- PT IS A/O, PLESANT AND COOPERATIVE. HE IS EATING AND DRINKING WELL. HIS S/O IS IT BEDSIDE. HE WAS SWITCHED TO ORAL ABX THIS SHIFT. HE IS WEARING DIANA HOSE. HE IS AMBULATING TO THE RESTROOM. WORKED WITH PT THIS SHIFT AND TOLERATED WELL. HIS BED IS IN THE LOW POSITION AND CALL LIGHT IS WITIN REACH.
--- NOTE | 2021-08-21 00:06 | NUR ---
PT NOW BACK IN LOW SEMI FOWLERS POSITION - VS TAKEN, PLACED 2L O2 ON PT - SATS 85-87% ON RA. SATS 92 % ON 2L OXYGEN VIA NC. PT DENIES FEELING SOB, DIZZY OR BEING LIGHTHEADED. CALL LIGHT WITHIN REACH. BED IN LOW POSITION. PT REFUSES BED ALARM, BUT REPORTS HE WILL CALL WHEN HE NEEDS ASSIST OOB. PT REPORTS BED ALARM SOUND GIVES HIS "PTSD."
[2021-08-21 05:30] LABS: Hematocrit 23.1 % (37.0-53.0); Hemoglobin 8.1 g/dL (13.5-17.5)
[2021-08-21 06:08] LABS: Magnesium, Blood 1.9 mg/dL (1.6-2.4)
[2021-08-21 06:09] LABS: Albumin, Blood 2.4 g/dL (3.4-5.0); Anion Gap 9 mmol/L (6-16); Blood Urea Nitrogen 83 mg/dL (8-24); Bun/Creatinine Ratio 26.1 (12.0-20.0); CO2, Blood 30 mmol/L (21-32); Calcium, Blood 8.8 mg/dL (8.5-10.1); Chloride, Blood 94 mmol/L (98-108); Creatinine, Blood 3.18 mg/dL (0.60-1.20); Glomerular Filtration Rate 20 (60-); Glucose, Blood 106 mg/dL (70-99); Phosphorus, Blood 4.6 mg/dL (2.5-4.9); Potassium, Blood 2.9 mmol/L (3.5-5.5); Sodium, Blood 133 mmol/L (136-145)
--- NOTE | 2021-08-21 07:16 | NUR ---
SHIFT SUMMARY - NO ACUTE CHANGES THIS SHIFT. SEE PREVIOUS NOTE WHEN PT AMBULATED TO [facility], WHERE HIS BP DROPPED, BUT ONCE BACK INTO BED AND LYING DOWN IN LOW SEMI FOWLERS POSITION, BP RECOVERED. PT REPORTED DISCOMFORT WITH FREQUENT LIQUID BOWEL MOVEMENTS - PT UNDERSTANDS THE USE OF LACTULOSE AND END RESULT. MEDICATED FOR NAUSEA X1. PT JAUNDICED - HISTORY OF ETOH ABUSE AND HEP C. FLUIDS AT BEDSIDE. CALL LIGHT WITHIN REACH. BED IN LOW POSITION. PT HAS USED THE CALL LIGHT APPROPRIATELY.
--- NOTE | 2021-08-21 19:19 | NUR ---
SHIFT JACKY- PT IS A/O, PLESANT AND COOPERATIVE. HE IS AMBULATING TO THE RESTROOM. HE IS ON A FLUID RESTRICTION. HIS S/O IS AT BEDSIDE. HIS BED IS IN THE LOW POSITION AND CALL LIGHT IS WITHIN REACH.
--- NOTE | 2021-08-22 04:05 | NUR ---
DISTRICT WIRE CHIEF SUMMARY ADMITTED FOR HEPATIC CIRRHOSIS. PT IS LIMITED CODE. PLAN FOR DISCHARGE ON THURSDAY. PT HAS BEEN USING THE WALKER IN THE ROOM AND AMBULATING TO THE RESTROOM WITHOUT DIFFICULTY. PT'S RASH TO THE ABDOMEN IS IMPROVING. HE NOW HAS 2+ EDEMA TO THE BLE. SOME DYSPNEA ON EXERTION. PLEASANT AND COOPERATIVE WITH CARE. SOME CONFUSION AT TIMES DURING CONVERSATION, BUT APPEARS IMPROVED.
[2021-08-22 05:09] LABS: Hematocrit 25.7 % (37.0-53.0); Hemoglobin 8.9 g/dL (13.5-17.5)
[2021-08-22 05:50] LABS: Albumin, Blood 2.6 g/dL (3.4-5.0); Anion Gap 10 mmol/L (6-16); Blood Urea Nitrogen 82 mg/dL (8-24); Bun/Creatinine Ratio 24.6 (12.0-20.0); CO2, Blood 27 mmol/L (21-32); Calcium, Blood 8.7 mg/dL (8.5-10.1); Chloride, Blood 94 mmol/L (98-108); Creatinine, Blood 3.34 mg/dL (0.60-1.20); Glomerular Filtration Rate 19 (60-); Glucose, Blood 104 mg/dL (70-99); Magnesium, Blood 1.8 mg/dL (1.6-2.4); Phosphorus, Blood 4.1 mg/dL (2.5-4.9); Potassium, Blood 3.3 mmol/L (3.5-5.5); Sodium, Blood 131 mmol/L (136-145)
--- NOTE | 2021-08-22 17:16 | NUR ---
Spiritual Care visit. Pt. was sitting up on the edge of the bed. Pt. welcomed my visit. S/O was present. Pt. displayed enthusiasm for the prospect of going home tomorrow. Faciliated a review of his progress. Gave pastoral certified alcohol counselor and anticipatory guidance regarding his discharge and home recovery. Pt. displays evidence of restored taj and resolve to restore his health. Pt. verbalized gratitude for the whole system that cared for him here at [facility]. Prayed with Pt. and S/O. Agreed to try and see him before discharge.
--- NOTE | 2021-08-22 18:10 | NUR ---
SHIFT SUMMARY PT AXO, PLEASANT AND COOPERATIVE WITH CARE THOUGH FORGETFUL. PT'S SIGNIFICANT OTHER PRESENT IN THE ROOM THROUGHOUT THE DAY. PATIENT WORKED WITH PHYSICAL THERAPY AND BECAME LIGHTHEADED, SEE VS. BP IMPROVED. PT DENIES ANY NEW ACUTE PAIN, SOB OR NV. PT REFUSED SECOND DOSE OF LACTULOSE FOR DIARRHEA THAT WAS DARK IN COLOR. BED IN LOW POSITION, CALL LIGHT WITHIN REACH.
--- NOTE | 2021-08-23 05:51 | NUR ---
Shift notes Patient AAOX3, Pleasant with care, no complaint of pain or disconfort. He had some confusion at time. Patient is able to ambulate to the bathroom using his walker. Lower extremities with +2 edema, some SOB with activities. No acute events during the night.
[2021-08-23 07:00] LABS: Albumin, Blood 2.6 g/dL (3.4-5.0); Anion Gap 8 mmol/L (6-16); Blood Urea Nitrogen 92 mg/dL (8-24); CO2, Blood 29 mmol/L (21-32); Calcium, Blood 8.9 mg/dL (8.5-10.1); Chloride, Blood 92 mmol/L (98-108); Creatinine, Blood 3.68 mg/dL (0.60-1.20); Glomerular Filtration Rate 17 (60-); Glucose, Blood 118 mg/dL (70-99); Magnesium, Blood 1.7 mg/dL (1.6-2.4); Phosphorus, Blood 3.8 mg/dL (2.5-4.9); Sodium, Blood 129 mmol/L (136-145)
[2021-08-23] MEDS ORDERED: BUME2 PO (09:37)
[2021-08-23] MEDS ORDERED: CEFD300 PO (09:39)
[2021-08-23] MEDS ORDERED: EPLERENONE25 MG PO (09:40)
[2021-08-23] MEDS ORDERED: METO5 PO (09:41)
[2021-08-23] MEDS ORDERED: LACT10SY PO (09:41)
[2021-08-23] MEDS ORDERED: MIDO5 PO (09:42)
--- NOTE | 2021-08-23 12:00 | NUR ---
SUMMARY/DISCHARGE PT DISCHARGED TO HOME WITH Fredo PHILLIPS, DISCHARGE INSTRUCTIONS GIVEN TO BOTH PT AND ALAN, THEY VERBALIZED UNDERSTANDING OF DISCHARGE INSTRUCTIONS REGARDING MEDS AND FOLLOW UP, PT TAKEN OUT VIA WHEELCHAIR
== END 2021-08-23 12:09 | disposition home or self-care (01) | DRG 871 ==
LOC: ER 14:07 → MEDS 20:32 → ERHOLD 20:32 → MEDS 22:29 → ICUE 08-06 09:47 → MEDS 08-12 23:27
PROVIDERS: Emergency Medicine; Internal Medicine; Internal Medicine Critical Care Medicine; Internal Medicine Nephrology; Student in an Organized Health Care Education/Training Program; ADMIT Internal Medicine
PROC: 0W9G3ZZ Drainage of Peritoneal Cavity, Percutaneous Approach (ICD-10-PCS; 2021-08-03)
PROC: 02HV33Z Insertion of Infusion Device into Superior Vena Cava, Percutaneous Approach (ICD-10-PCS; principal; 2021-08-06)
PROC: 0W9G3ZZ Drainage of Peritoneal Cavity, Percutaneous Approach (ICD-10-PCS; 2021-08-06)
DX: A41.9 Sepsis, unspecified organism (principal); K65.2 Spontaneous bacterial peritonitis; K72.00 Acute and subacute hepatic failure without coma; K76.7 Hepatorenal syndrome; J96.21 Acute and chronic respiratory failure with hypoxia; N17.9 Acute kidney failure, unspecified; D68.9 Coagulation defect, unspecified; R18.8 Other ascites; R65.20 Severe sepsis without septic shock; D64.9 Anemia, unspecified; I10 Essential (primary) hypertension; Z98.890 Other specified postprocedural states; Z79.899 Other long term (current) drug therapy; Z88.5 Allergy status to narcotic agent; Z91.040 Latex allergy status; Z88.1 Allergy status to other antibiotic agents; Z91.041 Radiographic dye allergy status; F17.210 Nicotine dependence, cigarettes, uncomplicated; Z91.030 Bee allergy status; Z88.8 Allergy status to other drugs, medicaments and biological substances; K74.60 Unspecified cirrhosis of liver; Z20.822 Contact with and (suspected) exposure to COVID-19
CPT/HCPCS: 0097U; 0241U; 36415; 36556; 49083; 51701; 71045; 74176; 80048; 80053; 80069; 80074; 80076; 81001; 82040; 82042; 82105; 82140; 82248; 82550; 82553; 82728; 83540; 83550; 83605; 83615; 83690; 83735; 84100; 84145; 84157; 84300; 84484; 85014; 85018; 85025; 85027; 85610; 86317; 86900; 86901; 87040; 87070; 87086; 87205; 89051; 93005; 93010; 93306; 94640; 94667; 94760; 94762; 96365; 96375; 97110; 97116; 97162; 97166; 97530; 97535; 99285-25; A9270; C1752; G0103; J0456; J0696; J0881; J1940; J2354; J2405; J2550; J3430; J7030; J7050; J7060; P9041; P9046

== ENCOUNTER 2021-08-24 08:16 | Inpatient (IN) | payer BC ==
[~2021-08-24] VITALS: Ht 170.2 cm; Wt 115.8 kg
[~2021-08-24 08:16] MED LIST changes: +BUME2 PO; +CEFD300 PO; +EPLERENONE25 MG PO; +LACT10SY PO; +METO5 PO; +MIDO5 PO; +SPIRONOLACTONE50 MG PO
[2021-08-24 09:41] LABS: Hematocrit 18.6 % (37.0-53.0); Hemoglobin 6.5 g/dL (13.5-17.5); Mean Corpuscular HGB 36.9 pg (26.0-34.0); Mean Corpuscular HGB Conc 34.9 g/dL (31.5-36.5); Mean Corpuscular Volume 106 fL (80-100); Mean Platelet Volume 11.9 fL (9.1-12.4); RDW Coefficient Variation 17.6 % (11.7-14.2); RDW Standard Deviation 66.4 fL (35.1-46.3); Red Blood Cell Count 1.76 M/mm3 (4.30-5.90); White Blood Cell Count 6.37 K/mm3 (4.00-11.30)
[2021-08-24 09:52] LABS: Albumin, Blood 2.5 g/dL (3.4-5.0); Albumin/Globulin Ratio 0.7 (0.8-1.8); Bilirubin, Total 8.1 mg/dL (0.1-1.0); Bun/Creatinine Ratio 24.8 (12.0-20.0); Calcium, Blood 8.7 mg/dL (8.5-10.1); Creatinine, Blood 4.51 mg/dL (0.60-1.20); Globulin, Blood 3.8 g/dL (2.2-4.0); Magnesium, Blood 1.5 mg/dL (1.6-2.4); Phosphorus, Blood 3.9 mg/dL (2.5-4.9); Potassium, Blood 4.3 mmol/L (3.5-5.5); Total Protein, Blood 6.3 g/dL (6.4-8.2)
[2021-08-24 09:56] LABS: Platelet Count 41 K/mm3 (150-400)
[2021-08-24 10:24] LABS: BASOPHILS ABSOLUTE MAN 0.12 K/mm3 (0.00-0.23); BASOPHILS PERCENT MAN 2 % (0-2); EOSINOPHILS ABSOLUTE MAN 1.21 K/mm3 (0.00-0.68); EOSINOPHILS PERCENT MAN 19 % (0-6); LYMPHOCYTES ABSOLUTE MAN 1.01 K/mm3 (0.84-5.20); LYMPHOCYTES PERCENT MAN 16 % (21-46); MONOCYTES PERCENT MAN 8 % (4-13); MYELOCYTE ABSOLUTE MAN 0.06 K/mm3 (0.00-0.00); MYELOCYTE PERCENT MAN 1 % (0-0); NEUTROPHILS ABSOLUTE MAN 3.43 K/mm3 (1.96-9.15); SEG NEUTROPHILS PERCENT MAN 54 % (41-73); TOTAL CELLS COUNTED 100
--- NOTE | 2021-08-24 13:00 | NUR ---
PT SPOUSE ESCORTED FROM WAITING ROOM TO BEDSIDE & ALLOWED TO SEE THE PT FOR APPROX 10min BEFORE PICC PROCEDURE BEGINS. DISCUSSED PT CASE THOROUGHLY W/ PT's SPOUSE, OPPORTUNITY PROVIDED FOR QUESTIONS. SPOUSE DENIES ANY UNANSWERED QUESTIONS & ENCOURAGED TO CALL W/ ANY CONCERNS. VISITATION POLICIES REINFORCED SPOUSE EXPRESSES HER FRUSTRATION W/ NO VISITATION. SPOUSE APPEARS TEARFUL BUT RECEPTIVE.
--- NOTE | 2021-08-24 13:30 | NUR ---
PT ARRIVES ADMIT FROM THE ED. PER PREVIOUS RN, PT WAS DC'D FROM THE HOSPITAL YESTERDAY. THAT DAY AND T/O THE NIGHT PT BEGAN TO HAVE BLOODY EMESIS, STOOL, ABD PAIN, & INCREASING CONFUSION. UPON ARRIVAL TO THE ED, PT WAS ALTERED, UNABLE TO FOLLOW ANY COMMANDS, HOWEVER NO BLOODY EMESIS OR STOOL NOTED. UPON ARRIVAL TO ICU, PT IS RESPONSIVE ONLY TO PAIN, UNABLE TO FOLLOW COMMANDS OR PARTICIPATE IN CARE. EYES & SKIN NOTABLY JAUNDICED. RR LABORED. HR SINUS TACH W/ INTERMITTENT MULTIFOCAL PVCs. SM ABRASION NOTED TO L INNER LIP W/ SM AMT OF BLOOD OOZING FROM L SIDE OF THE MOUTH. PETRE & NEDITA MADE AWARE. ABD IS VERY HARD, TENDER. RANDOLPH PLACED W/ 500cc IMMEDIATE ABBE OUTPUT. BLE +4 PITTING EDEMA, WARM. RECTAL TUBE PLACED IN PREPARATION FOR LACTULOSE ENEMA. AWAITING BASURTO'S ARRIVAL TO DICTATE PLAN OF CARE. SEE INITIAL SHIFT DOCUMENTATION FOR FULL ASSESSMENT.
--- NOTE | 2021-08-24 13:40 | NUR ---
Pt seen in ER, Review of pt status with phsycian. Updated icu charge on pt return and needs. Pt SO wants to come into Icu due to his confussion. Spoke with staff to advocate pt unable to answer questions.
--- NOTE | 2021-08-24 14:00 | NUR ---
UPDATE: DR BRAN, SB, & KARL ROUNDING. SB ARRIVES @ BEDSIDE FOR INITIAL PT EVAL. PLAN TO PLACE TRIALYSIS CATH & PLAN FOR DIALYSIS TONIGHT IF POSSIBLE OR TOMORROW. YINA PLANS TO DO BEDSIDE ENDOSCOPY W/ ANESTHESIA D/T PT INSTABILITY. AWAKING ANESTHESIOLOGIST AVAILABILITY. KARL ROUNDS & AGREES PICC PLACEMENT IS APPROPRIATE FOR NOW & ONCE PT COMPLETES THE ENDOSCOPY SHE WILL PLACE A TRIALYSIS CATH.
[2021-08-24 14:06] LABS: Source, Urine Foley catheter
[2021-08-24 14:15] LABS: Bilirubin, Urine Neg (Neg); Blood, Urine Neg (Neg); Glucose Qualitative, Urine Neg (Neg); Ketones, Urine Neg (Neg); Leukocyte Esterase, Urine Neg (Neg); Nitrite, Urine Neg (Neg); Protein, Urine Neg (Neg); Specific Gravity, Urine 1.015 (1.003-1.022); Urobilinogen, Urine NORM (Normal)
[2021-08-24 14:36] LABS: Appearance, Urine Clear (Clear); Color, Urine Pale Yellow (P-Yellow)
[2021-08-24 15:38] LABS: Hemoglobin 6.2 g/dL (13.5-17.5)
[2021-08-24 15:41] LABS: Hematocrit 17.7 % (37.0-53.0)
--- NOTE | 2021-08-24 16:09 | NUR ---
pt kps score is 20%. pt unresponsive.
[2021-08-24 16:59] LABS: International Normalized Ratio 2.64
--- NOTE | 2021-08-24 17:58 | NUR ---
UPDATE: PROCEDURE BEGINS. JAYDEN @ BEDSIDE TO BEGIN PROCEDURE. VERBAL CONSENT RECEIVED FROM PT'S DAUGHTER, YANA. VERIFIED W/ THIS RN. BOTH DAUGHTER & SO GIVEN THOROUGH [employer]. OPPORTUNITY PROVIDED FOR QUESTIONS, ALL QUESTIONS ANSWERED. VS CONTINUE TO STABILIZE AFTER RECEIVING PRBCs & FFP. 2ND UNIT OF FFP TO START SHORTLY. HR SINUS W/ INTERMITTENT MULTIFOCAL PVCs, 100-90s. SBP STABLE. MAPs >65. SPO2 >95% ON 2L/MIN NC.
[2021-08-24 18:09] LABS: Influenza A, PCR NEGATIVE (NEGATIVE); Influenza B, PCR NEGATIVE (NEGATIVE); Resp Syncytial Virus, PCR NEGATIVE (NEGATIVE)
--- NOTE | 2021-08-24 18:15 | NUR ---
08/24/21 1815 Liza Manrique History, Chart, Medications and Allergies reviewed before start of procedure. Bite Block Placed AND REMOVED AT END OF CASE. TIVA CARE BY , SEE PAPER ANESTHSIA RECORD.
[2021-08-24 18:16] LABS: SARS-Cov-2 (COVID-19) PCR, MMC POSITIVE (NEGATIVE)
--- NOTE | 2021-08-24 18:45 | NUR ---
SHIFT SUMMARY: ENDOSCOPY COMPLETE. PT TOLERATED WELL. NO CLIPS PLACED. YINA BELIEVES THE PT IS SUFFERING FROM DIC, HENCE THE GENERALIZED BLEEDING HE FOUND. VS STABLE T/O PROCEDURE, PT RECOVERED WELL & PLACED BACK ON 2L/min O2 NC. BLEEDING FROM INSIDE LIPS CONTINUES TO SLOWLY OOZE, YINA AWARE. PLAN FOR TRIALYSIS CATH PLACEMENT TOMORROW W/ NEDITA. SEE PREVIOUS NOTATION FOR PT PROGRESSION.
[2021-08-24 19:46] LABS: Bun/Creatinine Ratio 27.3 (12.0-20.0); Calcium, Blood 8.9 mg/dL (8.5-10.1); Creatinine, Blood 4.62 mg/dL (0.60-1.20)
[2021-08-24 21:45] LABS: Hemoglobin 6.1 g/dL (13.5-17.5)
[2021-08-24 21:52] LABS: Hematocrit 17.2 % (37.0-53.0)
--- NOTE | 2021-08-24 22:37 | NUR ---
ASSUMED CARE AT 1900 PATIENT REPSONDS TO PAINFUL STIMULI WITH EYE OPENING. MOANS AND MOVES ALL EXTREMETIES. BILATERAL WRIST RESTRAINTS TO PROTECT LINES AND TUBES. MEDICATED PER EMAR FOR AGITATION. 02 SATS 96% ON 2L VIA NC. EXP WHEEZEZ T/O. BP STABLE. HR SR @90s. LACTULOSE ENEMAS BEING GIVEN VIA RECTAL TUBE. RANDOLPH DRAINING PINK URINE. PETECHIAE THROUGHOUT. MEPILEX C/D/I ON COCCYX, REPOSITIONING Q2 HOURS. BITE BLOCK REMOVED AT START OF SHIFT BY VINCENT RN, SOME SWELLING AND BLLEEDING ON LIPS, PICTURE IN CHART. PER REPORT WOUND ON LEFT CHEEK WELL. HGB AND HCT CALLED TO DR. BORGES, PRBCs AND FFB TO BE INFUSED. CALLED AND UPDATED HER ON PATIENT CONDITION.
[2021-08-25 04:33] LABS: PCO2 Arterial 48.4 mmHg (35-45); PO2 Arterial 70.6 mmHg (80-100); pH Blood Arterial 7.39 (7.35-7.45)
[2021-08-25 06:05] LABS: Hematocrit 20.6 % (37.0-53.0); Hemoglobin 7.1 g/dL (13.5-17.5); Mean Corpuscular HGB 33.8 pg (26.0-34.0); Mean Corpuscular HGB Conc 34.5 g/dL (31.5-36.5); Mean Platelet Volume 11.3 fL (9.1-12.4); RDW Coefficient Variation 21.4 % (11.7-14.2); RDW Standard Deviation 74.8 fL (35.1-46.3); White Blood Cell Count 4.52 K/mm3 (4.00-11.30)
[2021-08-25 06:16] LABS: International Normalized Ratio 2.26; Prothrombin Time Results 22.5 Sec (9.7-11.5)
[2021-08-25 06:21] LABS: Albumin, Blood 2.7 g/dL (3.4-5.0); Albumin/Globulin Ratio 0.8 (0.8-1.8); Bilirubin, Total 10.6 mg/dL (0.1-1.0); Bun/Creatinine Ratio 26.2 (12.0-20.0); Calcium, Blood 8.6 mg/dL (8.5-10.1); Creatinine, Blood 4.55 mg/dL (0.60-1.20); Globulin, Blood 3.3 g/dL (2.2-4.0); Magnesium, Blood 1.8 mg/dL (1.6-2.4); Phosphorus, Blood 5.4 mg/dL (2.5-4.9); Potassium, Blood 3.6 mmol/L (3.5-5.5)
[2021-08-25 06:34] LABS: Mean Corpuscular Volume 98 fL (80-100)
[2021-08-25 06:36] LABS: Platelet Count 31 K/mm3 (150-400)
[2021-08-25 06:48] LABS: BASOPHILS PERCENT MAN 0 % (0-2); EOSINOPHILS ABSOLUTE MAN 1.13 K/mm3 (0.00-0.68); EOSINOPHILS PERCENT MAN 25 % (0-6); LYMPHOCYTES ABSOLUTE MAN 0.76 K/mm3 (0.84-5.20); LYMPHOCYTES PERCENT MAN 17 % (21-46); MONOCYTES ABSOLUTE MAN 0.18 K/mm3 (0.16-1.47); MONOCYTES PERCENT MAN 4 % (4-13); NEUTROPHILS ABSOLUTE MAN 2.44 K/mm3 (1.96-9.15); SEG NEUTROPHILS PERCENT MAN 54 % (41-73); TOTAL CELLS COUNTED 100
--- NOTE | 2021-08-25 07:23 | NUR ---
SHIFT SUMMARY PATIENT OPENS EYES TO VERBAL STIMULI, WAS ABLE TO LIFT HIS HEAD WHEN ASKED, OTHERWISE UNABLE TO FOLLOW COMMANDS OR COMMUNICATE. MOANS AND PULLS AT RESTRAINTS. 02 SATS 95% ON 2L VIA NC. LUNGS SOUNDS EXPIRATORY WHEEZE T/O. HR SR @80s-90s. BP STABLE. LACTULOSE ENEMAS GIVEN VIA RECTAL TUBE. RANDOLPH DRAINING PINK TO ABBE URINE. BED BATH DONE, MEPILEX TO COCCYX, LINEN CHANGED. ORAL CARE ATTEMPTED SEVERAL TIMES, PATIENT CLOSES MOUTH AND SHAKES HEAD. REPOSITIONED Q2 HOURS, BILATERAL SOFT WRIST RESTRAINTS FOR SAFETY. 2 UNITS OF PRBCs GIVEN AND [address] BARAJAS WITH INR AND PLATELET COUNT, ORDERS FOR 1 UNIT PLT AND FFP. ABG DONE DUE TO CONCERNS WITH RESPIRATIRY STATUS. REPORT GIVEN TO SALIMA CLOUD.
--- NOTE | 2021-08-25 11:17 | NUR ---
UPDATE: NO DIALYSIS TODAY KARL SPOKE W/ SB REGARDING PT'S IMPROVED LABS & URINE OUTPUT. PER SB, NO DIALYSIS TODAY. JEWELRY BEARING MAKER CALLED & UPDATED.
--- NOTE | 2021-08-25 11:28 | NUR ---
Received call from tamra (one of two [facility]), Shakira Jbukia-[phone]. She wanted in put on adavanced care planning conversations with pt's father, who is in early stages of dementia, per Shakira. Strategy and approach discussed. Pt is currently a Limited code for intubation/rx. Discussed DNR status with Shakira and she and her brother, Everardo, will discuss further. Shakira and Everardo want to give pt 2-3 days of full treatment to see if he can "turn things around" but verbalize a good understanding of his poor prognosis at this time. Shakira has spoken with Dr Sawyer this am and Dr Mccoy yesterday evening. She would like updates twice per shift if possible. Palliative care will try to help with providing updates to Shakira to accomodate that.
--- NOTE | 2021-08-25 16:59 | NUR ---
UPDATE: IMPROVING LOC PT REMAINS ALTERED, UNABLE TO FOLLOW COMMANDS, WRITHING IN THE BED & PULLING @ RESTRAINTS. HOWEVER PT ABLE TO OPEN HIS EYES TO NAME & IS NOW MOANING SOME WORDS, "YES/NO" & "WHAT", & SQUEEZES HANDS UPON COMMAND. DAUGHTER CONTACTED & GIVEN THOROUGH UPDATE. OPPORTUNITY PROVIDED FOR QUESTIONS & THERAPUTIC CONVERSATION. DAUGHTER IS VERY RECEPTIVE & VERBALIZES UNDERSTANDING OF PT's CONDITION & PROGRESSION.
--- NOTE | 2021-08-25 19:30 | NUR ---
ASSUMPTION OF CARE PT IS VERY AGITATED, DOES NOT ANSWER QUESTIONS OR FOLLOW DIRECTIONS. UNABLE TO BE REORIENTED. PT IS IN SOFT WRIST RESTRAINTS FOR SAFETY. OXYGEN VIA NC INCREASED FROM 2L TO 4L, OXYGEN SATURATION ON 2L WAS 85-88%. SATURATION INPROVED TO > THAN 90% ON 4L NC. DIRECTOR DAY CARE CENTER SHOWS SINUS RHYTHM, BP WNL AT THIS TIME. OCTREOTIDE AND PROTONIX DRIPS INFUSING VIA RIGHT UPPER ARM PICC PER MD ORDERS.
[2021-08-25 21:36] LABS: BASOPHILS ABSOLUTE AUTO 0.04 K/mm3 (0.00-0.23); BASOPHILS PERCENT AUTO 1 % (0-2); EOSINOPHILS ABSOLUTE AUTO 0.95 K/mm3 (0.00-0.68); EOSINOPHILS PERCENT AUTO 16 % (0-6); Hematocrit 22.7 % (37.0-53.0); Hemoglobin 7.6 g/dL (13.5-17.5); Mean Corpuscular HGB 33.6 pg (26.0-34.0); Mean Corpuscular HGB Conc 33.5 g/dL (31.5-36.5); Mean Corpuscular Volume 100 fL (80-100); Mean Platelet Volume 11.5 fL (9.1-12.4); NRBC ABSOLUTE 0.04 K/mm3 (0.00-0.02); NRBC Auto 0.7 /100 WBC (0.0-0.2); RDW Coefficient Variation 22.5 % (11.7-14.2); RDW Standard Deviation 79.3 fL (35.1-46.3); Red Blood Cell Count 2.26 M/mm3 (4.30-5.90); White Blood Cell Count 6.08 K/mm3 (4.00-11.30)
[2021-08-25 21:42] LABS: IMMATURE GRAN ABSOLUTE AUTO 0.15 K/mm3 (0.00-0.10); IMMATURE GRAN PERCENT AUTO 3 % (0-1); LYMPHOCYTES ABSOLUTE AUTO 1.95 K/mm3 (0.84-5.20); LYMPHOCYTES PERCENT AUTO 32 % (21-46); MONOCYTES PERCENT AUTO 10 % (4-13); NEUTROPHILS ABSOLUTE AUTO 2.39 K/mm3 (1.96-9.15); NEUTROPHILS PERCENT AUTO 39 % (41-73); Platelet Count 38 K/mm3 (150-400)
[2021-08-25 21:42] LABS: PCO2 Arterial 50.3 mmHg (35-45); pH Blood Arterial 7.28 (7.35-7.45)
[2021-08-25 21:54] LABS: Bun/Creatinine Ratio 28.8 (12.0-20.0); Calcium, Blood 8.6 mg/dL (8.5-10.1); Creatinine, Blood 4.62 mg/dL (0.60-1.20); Magnesium, Blood 1.8 mg/dL (1.6-2.4); Phosphorus, Blood 6.4 mg/dL (2.5-4.9); Potassium, Blood 3.2 mmol/L (3.5-5.5)
[2021-08-25 22:02] LABS: International Normalized Ratio 2.29; Prothrombin Time Results 22.8 Sec (9.7-11.5)
--- NOTE | 2021-08-26 00:31 | NUR ---
PT ORALLY SX AND ETT SX FOR COPIOUS BLOODY THICK, ONCE DONE PT EXTUBATED TO COMFORT WITH FAMILY AND MD AT BEDSIDE. PT EXTUBATED TO ROOM AIR WITHOUT ISSUE. TIME OF EXTUBATION 2353 ON 08/25/21
--- NOTE | 2021-08-26 01:18 | NUR ---
AT APPX 9PM PT WAS NOTED TO HAVE OXYGEN SATURATION LEVEL OF 85%. I WAS ENTERING THE ROOM THE PATIENT BECAME BRADYCARDIC AND LOST A PULSE. SEE CODE NOTES. ROSC WAS OBTAINED AND THE PATIENT WAS INTUBATED. DAUGHTER ARRIVED AND DR FAITH SPOKE WITH HER AND OTHER FAMILY MEMBERS. DAUGHTER CHANGED CODE STATUS TO COMFORT CARE. PT WAS GIVEN MEDICATIONS AND EXTUBATED PER MD ORDERS.
== END 2021-08-26 00:23 | DRG 871 ==
LOC: ER 08:16 → ICUW 11:14
PROVIDERS: Emergency Medicine; Internal Medicine; Internal Medicine Critical Care Medicine; Internal Medicine Gastroenterology; ADMIT Internal Medicine
PROC: 0W9G3ZZ Drainage of Peritoneal Cavity, Percutaneous Approach (ICD-10-PCS; 2021-08-24)
PROC: 30233K1 Transfusion of Nonautologous Frozen Plasma into Peripheral Vein, Percutaneous Approach (ICD-10-PCS; 2021-08-24)
PROC: 0DJ08ZZ Inspection of Upper Intestinal Tract, Via Natural or Artificial Opening Endoscopic (ICD-10-PCS; 2021-08-24)
PROC: 02HV33Z Insertion of Infusion Device into Superior Vena Cava, Percutaneous Approach (ICD-10-PCS; 2021-08-24)
PROC: 3E043XZ Introduction of Vasopressor into Central Vein, Percutaneous Approach (ICD-10-PCS; 2021-08-24)
PROC: 8E0ZXY6 Isolation (ICD-10-PCS; 2021-08-24)
PROC: 30233N1 Transfusion of Nonautologous Red Blood Cells into Peripheral Vein, Percutaneous Approach (ICD-10-PCS; principal; 2021-08-24 18:00)
PROC: 0BH18EZ Insertion of Endotracheal Airway into Trachea, Via Natural or Artificial Opening Endoscopic (ICD-10-PCS; 2021-08-25)
PROC: 5A1935Z Respiratory Ventilation, Less than 24 Consecutive Hours (ICD-10-PCS; 2021-08-25)
PROC: 5A12012 Performance of Cardiac Output, Single, Manual (ICD-10-PCS; 2021-08-26)
DX: A41.9 Sepsis, unspecified organism (principal); J96.01 Acute respiratory failure with hypoxia; K76.7 Hepatorenal syndrome; K72.00 Acute and subacute hepatic failure without coma; D65 Disseminated intravascular coagulation [defibrination syndrome]; R40.20 Unspecified coma; U07.1 COVID-19; I47.2 Ventricular tachycardia; R18.8 Other ascites; D68.9 Coagulation defect, unspecified; D62 Acute posthemorrhagic anemia; K92.2 Gastrointestinal hemorrhage, unspecified; E87.1 Hypo-osmolality and hyponatremia; N17.9 Acute kidney failure, unspecified; E87.2 Acidosis; Z66 Do not resuscitate; Z51.5 Encounter for palliative care; I46.9 Cardiac arrest, cause unspecified; I12.9 Hypertensive chronic kidney disease with stage 1 through stage 4 chronic kidney disease, or unspecified chronic kidney disease; N18.9 Chronic kidney disease, unspecified; R65.20 Severe sepsis without septic shock; K74.60 Unspecified cirrhosis of liver; F41.8 Other specified anxiety disorders; Z87.891 Personal history of nicotine dependence; Z98.52 Vasectomy status; Z90.89 Acquired absence of other organs; Z98.890 Other specified postprocedural states; Z88.6 Allergy status to analgesic agent; Z88.0 Allergy status to penicillin; Z88.8 Allergy status to other drugs, medicaments and biological substances; Z91.040 Latex allergy status; Z79.899 Other long term (current) drug therapy; Z78.1 Physical restraint status
CPT/HCPCS: 0241U; 31500; 36415; 36430; 36569; 36600; 51702; 71045; 80048; 80053; 81003; 82140; 82803; 83605; 83735; 84100; 85014; 85018; 85025; 85610; 85730; 86850; 86900; 86901; 86923; 93005; 93010; 94002; 94760; 96365; 96366; 96375; 99285-25; A9270; C1751; C9113; J0171; J0696; J1430; J1956; J2060; J2270; J2354; J2704; J3010; J3430; J3475; J3480; J7030; J7050; J7120; P9016; P9035; P9046; P9059